=== PATIENT | male | born 1940 | race Caucasian/White ===

== ENCOUNTER → 2016-12-07 | Outpatient (CLI) | payer OTHER, MEDICARE ==
[~2016-12-07] VITALS: Ht 177.8 cm; Wt 82.6 kg
[~2016-12-07] MED LIST: ALEVE220 M1 PO; AMBIEN; AMBIEN 10 MG TA10 MG PO; ASPIR-LOW81 MG PO; BACLOFEN 10MG T10 MG PO; BIOTIN5 MG PO; BISOPROLOL FUMA10 MG PO; CELEBREX 200 M200 MG PO; CINNAMON500 MG PO; COLACE100 MG PO; CRESTOR10 MG PO; DICLOFENAC SOD50 M1 PO; FENTANYL PA25 MCG/HR TP; FISH OIL 1,001000 M2 PO; FISHOIL PO; FLEXERIL PO; FLOMAX0.4 MG PO; GLUCOPHAGE XR500 MG PO; LIORESAL 10 MG10 MG PO; LIPITOR 20 MG T20 M1 PO; LISINOPRIL20 MG PO; LISINOPRIL5 MG PO; LYRICA 50 MG50 MG PO; LYRICA 75 MG CA75 MG PO; LYRICA200 MG PO; MEDROLDOSEPACK PO; MELATONIN10 M1 PO; MULTIVITAMINS; NABUMETONE 500500 M1 PO; NABUMETONE 750750 M1 PO; NAPROSYN500 MG PO; NEURONTIN 300300 M1 PO; NEURONTIN100 MG PO; NEURONTIN600 MG PO; NORVASC 5 MG TAB5 MG PO; OXYCODONE-ACET1 EAC2 PO; PERCOCET 10-321 EACH PO; PERCOCET 5-3251 EACH PO; PHENDIMETRAZINE35 MG PO; PRILOSEC 20 MG20 MG PO; SAW PALMETTO160 M1 PO; VITAMIN D-32000 UNIT PO; WELLBUTRIN SR150 MG PO; WELLBUTRIN XL150 M1 PO; ZIPSOR25 MG PO; ZOCOR 10 MG TAB10 MG PO
--- NOTE | ~2016-12-07 | HPC ---
[facility] [address] [place] [address] PAIN MANAGEMENT CONSULTATION Name: SAMSON ALANIZ Room #: REG [facility]#: [id number] Admission: 12/07/16 Attend Phys: Coleman Parnell DO Discharge: Date of : 42 Report #: [id number] THIS REPORT FOR: //name// CC: Coleman Tubbs MD DATE OF SERVICE: 12/07/2016 REFERRING PHYSICIAN: Osmani Tubbs MD. CHIEF COMPLAINT: Low back pain and left lower extremity pain. HISTORY OF PRESENT ILLNESS: As you know, the patient is a 76-year-old male, returning in followup visit with recurrent lumbar radicular pain, secondary to spinal stenosis. He indicates today level of pain at 3/10. States the pain begins in the low back, radiates down the right leg intermittently on the left leg. He states standing and walking exacerbate symptoms. Medications, sitting, and lying down appears to improve pain. He has returned today in followup visit for epidural injection under fluoroscopic guidance and for refills of his gabapentin. ALLERGIES: NABUMETONE. CURRENT MEDICATIONS: Baclofen, lisinopril, Percocet, gabapentin, metformin, Biotin, tamsulosin, bupropion, Zolpidem, and cholecalciferol. SOCIAL HISTORY: The patient denies tobacco, alcohol, IV or illicit drug use. He is retired, retired years ago, accompanied by his . IMAGING: No new imaging available. PHYSICAL EXAMINATION: VITAL SIGNS: Blood pressure 153/80, pulse is 51, respiratory rate 16, unlabored. The patient is 97% on room air. Height 5 feet 10 inches tall, weight 182 pounds, BMI calculated 26.1. GENERAL: Well-developed, well-nourished, and well-hydrated. A 76-year-old male. He appears stated age, placing current pain score at 3/10. HEENT: Normocephalic and atraumatic. Pupils are equal, round, and reactive to light. Extraocular muscles are intact. EXTREMITIES: Show no clubbing, no cyanosis, no edema. MUSCULOSKELETAL: Seated straight leg raising negative. Supine straight leg raising positive. Tong's test negative. Gait is antalgic, favoring right lower extremity over left. Ankle clonus negative. Babinski is negative. ASSESSMENT: [address] [address] PAIN MANAGEMENT CONSULTATION Name: SAMSON ALANIZ Room #: REG [facility]#: [id number] Admission: 12/07/16 Attend Phys: Coleman Parnell DO Discharge: Date of : 42 Report #: [id number] 1. Symptomatic lumbar radiculopathy. 2. Progressively worsening spinal stenosis of the lumbar spine. 3. Post-laminectomy syndrome. 4. Lumbosacral spondylosis with radiculopathy. 5. Displacement of lumbar intervertebral disk with radiculopathy. 6. Lumbar degeneration. 7. Chronic intractable pain. PLAN: 1. The patient returns today in followup visit requesting to undergo the next in the series of epidural injections under fluoroscopic guidance. He does report that he received epidural injections in [place]. Apparently, he had received one while he was there. This now leaves us with two remaining epidural injections in the 6 months' period. I have advised the patient at this time of the risks and the benefits of the requested epidural injection. These risks include but are not necessarily limited to bleeding, bruising, infection, worsening pain, no relief of pain, also risk of temporary or permanent muscle weakness, temporary or permanent nerve damage, possible paralysis and . The patient states he understood and wished to proceed. 2. The patient was provided a refill of prescription on his gabapentin 600 mg dose 1 tab p.o. at bedtime. I have given the patient #90 tablets. 3 months' worth of medications. 3. The patient will return to our clinic on an as needed basis for possible repeat epidural injection. We did discuss once again today, the progressive process of spinal stenosis. I believe the patient is experiencing increasing pain that is variable in nature, secondary to spinal stenosis and this process will continue. We discussed the options for treatment. He is considering these and will discuss at our followup visit. PROCEDURE NOTE DESCRIPTION OF PROCEDURE: Lumbar epidural steroid injection under fluoroscopic guidance. After obtaining a written consent, the patient was taken back to fluoroscopy suite, placed in prone position with pillow under her abdomen to decrease lumbar lordosis. Skin overlying the lumbosacral area prepped and draped in aseptic fashion. The lumbar intervertebral spaces were identified by AP fluoroscopy. Skin and subcutaneous tissue overlying the target site of injection was anesthetized with 3 mL of 1% lidocaine. A 20-gauge 3-1/2 inch Tuohy needle advanced under fluoroscopic guidance towards the epidural space using a paramedian approach. Epidural space was identified using loss of resistance to air technique. After negative aspiration for heme or cerebrospinal fluid, 1 mL of Omnipaque was injected. A lumbar epidurogram was confirmed using both AP and lateral fluoroscopy. After negative aspiration [address] [address] PAIN MANAGEMENT CONSULTATION Name: SAMSON ALANIZ Room #: REG [facility]#: [id number] Admission: 12/07/16 Attend Phys: Coleman Parnell DO Discharge: Date of : 42 Report #: [id number] for heme or cerebrospinal fluid, 5 mL of a solution containing 2 mL 40 mg per mL, 80 mg total triamcinolone, 3 mL of lidocaine 1% injected slowly. Needle retracted fci, needle tract flushed with 3 mL 1% lidocaine. Needle was then removed. Sterile bandage placed over injection site. No new motor deficits present in the lower extremity following the procedure. The patient tolerated the procedure well, carefully escorted to the recovery room in stable condition. No apparent complications. After meeting discharge criteria, the patient discharged home. By: [id number] Coleman Parnell DO /nt
[2016-12-07 10:26] VITALS: BP 153/80
== END | disposition home or self-care (01) ==
LOC: PAIN 12-01 11:05
DX: M51.16 Intervertebral disc disorders with radiculopathy, lumbar region (principal); M48.06 Spinal stenosis, lumbar region; M47.27 Other spondylosis with radiculopathy, lumbosacral region; G89.29 Other chronic pain; M96.1 Postlaminectomy syndrome, not elsewhere classified; Z87.891 Personal history of nicotine dependence

== ENCOUNTER → 2016-12-15 | Outpatient (CLI) | payer OTHER, MEDICARE | LOC: MRI 02:01 | DX: M48.02 Spinal stenosis, cervical region (principal); R91.1 Solitary pulmonary nodule; M47.22 Other spondylosis with radiculopathy, cervical region; M54.2 Cervicalgia ==

== ENCOUNTER → 2017-04-27 | Outpatient (CLI) | payer OTHER, MEDICARE ==
[~2017-04-27] VITALS: Ht 172.7 cm; Wt 81.6 kg
[~2017-04-27] MED LIST changes: +MOBIC7.5 MG PO
--- NOTE | ~2017-04-27 | HPC ---
[facility] [address] [place] [address] PAIN MANAGEMENT CONSULTATION Name: SAMSON ALANIZ [facility] [id number] Admission: 04/27/17 Attend Phys: Coleman Parnell DO Discharge: Date of : 42 Report #: [id number] THIS REPORT FOR: //name// CC: Coleman Tubbs DATE OF SERVICE: 04/27/2017 CHIEF COMPLAINT: Low back pain, bilateral lower extremity pain with paresthesias. HISTORY OF PRESENT ILLNESS: As you know, the patient is a 77-year-old male who returns today in followup visit with recurrent lumbar radicular pain secondary to progressively worsening spinal stenosis. We have had the patient seen for years for ongoing lumbar radiculopathy. He has recently seen a neurosurgeon who advised a possible surgical necessity. The patient wishes to trial more conservative therapy until which time his conservative therapy fails. He reports good improvement with epidural injections and medication management up to 60% improvement. He has returned today in followup visit requesting next in the series of epidural injections in hopes of building on success of previous intervention. The patient denies any new injury or trauma that may have led to symptoms and no new changes in medical history since our last visit. ALLERGIES: NABUMETONE. CURRENT MEDICATIONS: Baclofen, lisinopril, Percocet, gabapentin, metformin, biotin, tamsulosin, bupropion, zolpidem and cholecalciferol. SOCIAL HISTORY: The patient denies tobacco, alcohol, IV or illicit drug use. He is retired, retired years ago. He is unaccompanied today. IMAGING: No new imaging available. PHYSICAL EXAMINATION: VITAL SIGNS: Blood pressure 186/81, pulse is 51, respiratory rate 14 unlabored. The patient is 98% on room air. Height 5 feet 8 inches tall, weight 180 pounds, BMI calculated 27.4. GENERAL: Well-developed, well-nourished, well-hydrated, 77-year-old male. He appears his stated age. He is placing current pain score at 8/10. HEENT: Normocephalic, atraumatic. Pupils equal, round, reactive to light. EXTREMITIES: Show no clubbing, no cyanosis, no edema. MUSCULOSKELETAL: Seated straight leg raising negative. Supine straight leg raising positive left. ESTELA test negative. Modified Gaenslen's positive for axial low back pain. Ankle clonus negative. Babinski is negative. Muscle bulk and tone equal and symmetrical in lower extremities. [place] [address] PAIN MANAGEMENT CONSULTATION Name: SAMSON ALANIZ Room #: [facility] MelitaOziel#: [id number] Admission: 04/27/17 Attend Phys: Coleman Parnell DO Discharge: Date of : 42 Report #: [id number] left lower extremity over right. ASSESSMENT: 1. Symptomatic lumbar radiculopathy. 2. Progressively worsening spinal stenosis of lumbar spine. 3. Displacement of lumbar intervertebral disk with radiculopathy. 4. Lumbosacral spondylosis with radiculopathy. 5. Lumbar degeneration. 6. Facet arthropathy of lumbar spine. 7. Chronic intractable pain. PLAN: 1. The patient returns today in followup visit indicating good benefit with previous epidural injection. He has returned today in followup visit to undergo the next in the series of epidural injections. The patient states he has recently been seen by Dr. Pulliam, Neurosurgery at [facility]. I advised that he will likely need surgical decompression of his spinal stenosis, but to continue conservative therapy until this fails to provide good benefit. He has been referred back to our clinic to trial this epidural injection. He has been advised risks and benefits of procedure, states he understood and wished to proceed. 2. The patient was provided a prescription of gabapentin 600 mg dose taking 1 tab p.o. at bedtime, given the patient #90 which is a 3-month prescription with four refills. 3. The patient was provided a prescription of baclofen 10 mg dose 1 tab p.o. t.i.d., muscle spasms, #90, 2 refills. 4. The patient was provided a prescription of Percocet 10/325 one tab every 8 hours p.r.n. for pain, #90 releases of today, 4 weeks from today, 8 weeks from today, 3 months' worth of medication. The patient denies any side effects to medication, does find them beneficial. He has not shown any aberrancy with the use of medication. He has not called for early refills or had lost or stolen prescriptions. He appears to be safeguarding his medications well. 5. We will see the patient back in followup visit on an as needed basis for the next in a series of epidural injections, otherwise, we will see him back in 3 months for medication management. PROCEDURE NOTE DESCRIPTION OF PROCEDURE: L5-S1 left paramedian epidural steroid injection under fluoroscopic guidance. After obtaining written consent, the patient was taken back to fluoroscopy suite, placed in prone position with pillow under abdomen to decrease lumbar lordosis. Skin overlying lumbosacral area prepped and draped in aseptic fashion. Lumbar intervertebral spaces were identified by AP fluoroscopy. Skin and subcutaneous tissue overlying target site of injection was anesthetized with [address] [address] PAIN MANAGEMENT CONSULTATION Name: SAMSON ALANIZ Room #: [facility]#: [id number] Admission: 04/27/17 Attend Phys: Coleman Parnell DO Discharge: Date of : 42 Report #: [id number] 3 mL of 1% lidocaine. A 20-gauge 3-1/2 inch Tuohy needle advanced under fluoroscopic guidance towards the epidural space using a left paramedian approach. Epidural space identified using loss of resistance to air technique. After negative aspiration for heme or cerebrospinal fluid, 1 mL of Omnipaque was injected. Lumbar epidurogram was confirmed using both AP and lateral fluoroscopy. After negative aspiration for heme or cerebrospinal fluid, 5 mL of a solution containing 2 mL 40 mg per mL, 80 mg total triamcinolone, 3 mL lidocaine 1% injected slowly. Needle retracted correction, needle tract flushed with 3 mL 1% lidocaine. Needle then removed. Sterile bandage placed over injection site. No new motor deficits present in lower extremity following the procedure. The patient tolerated the procedure well, carefully escorted to the recovery room in stable condition. No apparent complications. After meeting discharge criteria, the patient discharged home. By: [id number] Coleman Parnell DO /nt
[2017-04-27 08:10] VITALS: BP 186/81
== END | disposition home or self-care (01) ==
LOC: PAIN 07:07
DX: M51.16 Intervertebral disc disorders with radiculopathy, lumbar region (principal); G89.29 Other chronic pain; M48.06 Spinal stenosis, lumbar region; M47.27 Other spondylosis with radiculopathy, lumbosacral region; M12.88 Other specific arthropathies, not elsewhere classified, other specified site; Z79.899 Other long term (current) drug therapy; Z88.8 Allergy status to other drugs, medicaments and biological substances; Z98.890 Other specified postprocedural states

== ENCOUNTER → 2017-07-05 | Outpatient (CLI) | payer OTHER, MEDICARE ==
[~2017-07-05] VITALS: Ht 172.7 cm; Wt 81.2 kg
--- NOTE | ~2017-07-05 | HPC ---
[facility] [place] [address] PAIN MANAGEMENT CONSULTATION Name: SAMSON ALANIZ Room #: REG [facility]#: [id number] Admission: 07/05/17 Attend Phys: Coleman Parnell DO Discharge: Date of : 42 Report #: [id number] THIS REPORT FOR: //name// CC: Coleman Tubbs DATE OF SERVICE: 07/05/2017 CHIEF COMPLAINT: Low back pain, left lower extremity pain with paresthesias, intermittent right lower extremity pain. HISTORY OF PRESENT ILLNESS: As you know, the patient is a 77-year-old male who returns today in followup visit with recurrent low back pain, left lower extremity pain and intermittent right lower extremity pain. He places pain score anywhere from 6-8/10; states pain is sharp, aching, dull, numbness and tingling; exacerbated with standing, walking, arising in the morning hours; medications, sitting, repositioning and epidural injections appear to improve pain. He returns today in followup visit requesting an epidural injection under fluoroscopic guidance to assist in pain control. ALLERGIES: Nabumetone. CURRENT MEDICATIONS: Baclofen, lisinopril, Percocet, gabapentin, metformin, biotin, tamsulosin, Bupropion, zolpidem and cholecalciferol. SOCIAL HISTORY: The patient denies tobacco, alcohol, IV or illicit drug use. He is retired, retired years ago. He is accompanied by his . IMAGING: No new imaging available. PHYSICAL EXAMINATION: VITAL SIGNS: Blood pressure 164/89, pulse is 46, respiratory rate 16 and unlabored. The patient is 98% on room air, height 5 feet 8 inches tall, weight 179 pounds, BMI calculated 27.2. GENERAL: Well-developed, well-nourished, well-hydrated 77-year-old male who appears his stated age. He is placing current pain score 6-8/10. HEENT: Normocephalic, atraumatic. Pupils equal, round, reactive to light. Extraocular muscles are intact. Sclerae nonicteric, without injection. EXTREMITIES: Show no clubbing, no cyanosis, no edema. MUSCULOSKELETAL: Seated straight leg raising remains negative. Supine straight leg raising is positive left. ESTELA test negative. Modified Gaenslen's positive for axial low back pain. Gait slightly antalgic favoring left lower extremity over right. Muscle bulk and tone equal and symmetrical in lower extremities. Ankle clonus negative. Babinski is negative. [facility] [address] [place] [address] PAIN MANAGEMENT CONSULTATION Name: SAMSON ALANIZ Room #: [facility]#: [id number] Admission: 07/05/17 Attend Phys: Coleman Parnell DO Discharge: Date of : 42 Report #: [id number] ASSESSMENT: 1. Symptomatic lumbar radiculopathy. 2. Progressively worsening spinal stenosis of lumbar spine. 3. Displacement of lumbar intervertebral disk with radiculopathy. 4. Lumbosacral spondylosis with radiculopathy. 5. Postlaminectomy syndrome. 6. Lumbar degeneration. 7. Chronic intractable pain. PLAN: 1. The patient returns today in followup visit where we have discussed again the patient's specific pathology. The patient, as you are aware, suffers from progressively worsening spinal stenosis, which is leading to mainly left lower extremity pain and paresthesias, but intermittent right lower extremity pain with paresthesias. The patient reports good efficacy with previous epidural injection, up to 60-70% improvement in overall pain. This lasted until a recent fishing trip with his grandson where he began to experience increasing pain. Next day he states his pain returned to its typical baseline of 6-8/10. He has made today's appointment to undergo the next in a series of epidural injections. He has been advised risks and benefits of the procedure, states he understood and wished to proceed. 2. No medication changes were made at today's visit. The patient will continue current medical therapy as previously prescribed. 3. The patient will return to our clinic on an as needed basis for the next in the series of epidural injections to build on success of previous treatments PROCEDURE NOTE DESCRIPTION OF PROCEDURE: Lumbar epidural steroid injection under fluoroscopic guidance. After obtaining written consent, the patient was taken back to fluoroscopy suite, placed in prone position with pillow under abdomen to decrease lumbar lordosis. Skin overlying lumbosacral area prepped and draped in aseptic fashion. The lumbar intervertebral spaces were identified by AP fluoroscopy. Skin and subcutaneous tissue overlying the target site of injection was anesthetized with 3 mL of 1% lidocaine. A 20-gauge 3-1/2 inch Tuohy needle advanced under fluoroscopic guidance towards the epidural space using a left paramedian approach. Epidural space identified using loss of resistance to air technique. After negative aspiration for heme or cerebrospinal fluid, 1 mL of Omnipaque was injected. Lumbar epidurogram was confirmed using both AP and lateral fluoroscopy. After negative aspiration for heme or cerebrospinal fluid, 5 mL of a solution containing 2 mL 40 mg per mL, 80 mg total triamcinolone, 3 mL lidocaine 1% injected slowly. Needle retracted jail, needle tract flushed with 3 mL 1% lidocaine. Needle then removed. [address] [address] PAIN MANAGEMENT CONSULTATION Name: SAMSON ALANIZ Room #: REG [facility]#: [id number] Admission: 07/05/17 Attend Phys: Coleman Parnell DO Discharge: Date of : 42 Report #: [id number] Sterile bandage placed over injection site. No new motor deficits present in lower extremity following the procedure. The patient tolerated the procedure well, carefully escorted to the recovery in stable condition. No apparent complications. After meeting discharge criteria, the patient discharged home. By: [id number] Coleman Parnell DO /nt
[2017-07-05 12:54] VITALS: BP 164/89
== END | disposition home or self-care (01) ==
LOC: PAIN 06:57
DX: M51.16 Intervertebral disc disorders with radiculopathy, lumbar region (principal); M48.061 Spinal stenosis, lumbar region without neurogenic claudication; M47.27 Other spondylosis with radiculopathy, lumbosacral region; M96.1 Postlaminectomy syndrome, not elsewhere classified; G89.29 Other chronic pain; Z88.5 Allergy status to narcotic agent; Z79.899 Other long term (current) drug therapy; Z87.891 Personal history of nicotine dependence

== ENCOUNTER → 2017-11-29 | Outpatient (CLI) | payer OTHER, MEDICARE ==
[~2017-11-29] VITALS: Ht 172.7 cm; Wt 85.3 kg
[~2017-11-29] MED LIST changes: +MS CONTIN15 MG PO; +SUPER B-50 COM1 EACH PO; +VITAMINC500 PO
--- NOTE | ~2017-11-29 | HPC ---
[facility] [address] [place] [address] PAIN MANAGEMENT CONSULTATION Name: SAMSON ALANIZ [facility] [id number] Admission: 11/29/17 Attend Phys: Coleman Parnell DO Discharge: Date of : 42 Report #: [id number] THIS REPORT FOR: //name// CC: Coleman Tubbs MD DATE OF SERVICE: 11/29/2017 REFERRING PHYSICIAN: Osmani Tubbs M.D. CHIEF COMPLAINT: Low back pain, bilateral lower extremity pain with paresthesias, right greater than left. HISTORY OF PRESENT ILLNESS: As you know, the patient is a 77-year-old male who suffers from continual lumbar radiculopathy secondary to spinal stenosis. He has had symptoms that involved both lower extremities bilaterally but now is experiencing greater symptoms on the right side. He returns today in followup visit to undergo next in the series of epidural injections under fluoroscopic guidance. He reported a 95% improvement in overall pain with previous epidural injection lasting for months. He has had a return of symptoms without inciting injury or trauma. States his pain is sharp, aching, dull, numbness and tingling when describing pain. He is also experiencing pain and paresthesias in the right upper extremity, which appears to be cervical radiculopathy. He was discussed this as well. ALLERGIES: NABUMETONE. CURRENT MEDICATIONS: Baclofen, lisinopril, Percocet, gabapentin, metformin, biotin, bupropion, zolpidem and cholecalciferol. SOCIAL HISTORY: The patient denies tobacco, alcohol, IV or illicit drug use. He is retired, retired years ago and unaccompanied today. IMAGING DATA: No new imaging available. PQRS: The patient has known osteoarthritis. No rheumatoid arthritis. He is not a risk for fall and has not had a fall in the last 3 months. His pain intensity is 6/10. He does have a history of hypertension, which is treated. He is on opioids for greater than 6 months and he is under contract with [facility] to receive these medications. His functional assessment is indicated at 47/70 indicating [id number] interference of daily activities secondary to pain. PHYSICAL EXAMINATION: VITAL SIGNS: Blood pressure 135/88, pulse 69 and respiratory rate 14 and [facility] [address] [place] [address] PAIN MANAGEMENT CONSULTATION Name: SAMSON ALANIZ Room #: [facility]#: [id number] Admission: 11/29/17 Attend Phys: Coleman Parnell DO Discharge: Date of : 42 Report #: [id number] unlabored. The patient is 98% on room air. Height 5 feet 8 inches tall, weight 180 pounds and BMI calculated 28.6. GENERAL: Well-developed, well-nourished, well-hydrated 77-year-old male appearing stated age, placing current pain score 6/10. HEENT: Normocephalic and atraumatic. Pupils equal, round and reactive to light. Extraocular muscles are intact. EXTREMITIES: Show no clubbing, no cyanosis and no edema. MUSCULOSKELETAL: Upper extremity strength equal and symmetrical 5/5. He is intact to light touch from C5 to T1 dermatomes. Spurling's test positive on the right, negative left. Distribution of symptoms appears to be C7 dermatome on the right. Seated straight leg raising negative. Supine straight leg raising positive, right. Tong's test negative. Modified Gaenslen's positive for axial low back pain. Ankle clonus negative. Gait is antalgic favoring right lower extremity over left. ASSESSMENT: 1. Symptomatic lumbar radiculopathy. 2. Progressively worsening spinal stenosis of lumbar spine. 3. Displacement of lumbar intervertebral disk with radiculopathy. 4. Lumbosacral spondylosis with radiculopathy. 5. Lumbar degeneration. 6. Cervical radiculopathy. 7. Cervical spondylosis with radiculopathy. 8. Chronic intractable pain. PLAN: 1. The patient returns today in followup visit where he is describing continued lumbar radicular symptoms secondary to spinal stenosis. His symptoms are now involved bilateral lower extremities, right greater than left. He returns today in followup visit requesting epidural injection under fluoroscopic guidance. He has been advised the risks and benefits of procedures. He states understood and wished to proceed. The patient was very pleased with previous epidural injection receiving 95% improvement in overall pain for months. He returns to undergo the procedure today. 2. The patient is experiencing what appears to be cervical radiculopathy on the C7 dermatome on the right. Provocation testing indicates worsening symptoms with lateral flexion and rotation to the right versus left. Symptoms do correlate with cervical radiculopathy. We discussed options for treatments and the patient wishes to make alterations in his medications initially. 3. We will increase the patient's gabapentin from 600 mg at night to 900 mg at night for 7 days, then increase to 1200 mg at night for 7 days, then increase to 1 tab in the morning continuing 4 times a night for the next 21 days, reaching a level of 1200 mg twice a day. The patient was advised anytime during the titration of medication notes side effects of somnolence, decreased mental acuity, disorientation and confusion, decrease the dose to prior and contact our clinic for further instructions. He was given the titration schedule in written [facility] [address] [place] [address] PAIN MANAGEMENT CONSULTATION Name: SAMSON ALANIZ [facility] #: [facility] [id number] Admission: 11/29/17 Attend Phys: Coleman Parnell DO Discharge: Date of : 42 Report #: [id number] form today. He was also given a prescription of gabapentin 300 mg dose #240. 4. The patient was provided a prescription of baclofen 10 mg dose 1 tab p.o. b.i.d. to t.i.d., #90, two refills. 5. The patient was provided refill prescription of Percocet 10/325 one tab t.i.d. p.r.n., #90, releases of today, 4 weeks from today and 8 weeks from today. 6. The patient return for clinic in 3 months for medication therapy earlier for the next in the series of epidural injections. PROCEDURE NOTE DESCRIPTION OF PROCEDURE: Lumbar epidural steroid injection under fluoroscopic guidance. After obtaining written consent, the patient was taken back to fluoroscopy suite, placed in prone position with pillow under abdomen to decrease lumbar lordosis. Skin overlying lumbosacral area then prepped and draped in aseptic fashion. Lumbar intervertebral spaces identified by AP fluoroscopy. Skin and subcutaneous tissue overlying target site of injection was anesthetized with 3 mL of 1% lidocaine. A 20-gauge 3-1/2 inch Tuohy needle advanced under fluoroscopic guidance towards the epidural space using a right paramedian approach. Epidural space identified using loss of resistance to air technique. After negative aspiration for heme or cerebrospinal fluid, 1 mL of Omnipaque was injected. Lumbar epidurogram was confirmed using both AP and lateral fluoroscopy. After negative aspiration for heme or cerebrospinal fluid, 3 mL of a solution containing 2 mL 40 mg per mL, 80 mg total triamcinolone, 1 mL of lidocaine 1% was injected slowly. Needle retracted residential, flushed with 1 mL of 1% lidocaine and removed. Sterile bandage placed over injection site. No new motor deficits present in lower extremity following procedure. The patient tolerated procedure well, carefully escorted to recovery room in stable condition. No apparent complication. After meeting discharge criteria, the patient discharged home. <ELECTRONICALLY SIGNED> By: Coleman Parnell DO 11/29/17 [id number] Coleman Parnell DO /nt
[2017-11-29 09:14] VITALS: BP 135/88
== END | disposition home or self-care (01) ==
LOC: PAIN 07:00
DX: M51.16 Intervertebral disc disorders with radiculopathy, lumbar region (principal); M47.22 Other spondylosis with radiculopathy, cervical region; M47.27 Other spondylosis with radiculopathy, lumbosacral region; G89.29 Other chronic pain; M48.061 Spinal stenosis, lumbar region without neurogenic claudication; Z79.899 Other long term (current) drug therapy

== ENCOUNTER → 2018-03-07 | Outpatient (CLI) | payer OTHER, MEDICARE ==
[~2018-03-07] VITALS: Ht 172.7 cm; Wt 82.5 kg
--- NOTE | ~2018-03-07 | HPC ---
[facility] [place] [address] PAIN MANAGEMENT CONSULTATION Name: SAMSON ALANIZ [facility] [id number] Admission: 03/07/18 Attend Phys: Coleman Parnell DO Discharge: Date of : 42 Report #: [id number] THIS REPORT FOR: //name// CC: Coleman Tubbs MD DATE OF SERVICE: 03/07/2018 REFERRING PHYSICIAN: Dr. Osmani Tubbs. CHIEF COMPLAINT: Neck pain, bilateral upper extremity pain and paresthesias, chronic low back pain. HISTORY OF PRESENT ILLNESS: As you know, the patient is a 78-year-old male who returns today in followup visit with concern of neck pain, bilateral upper extremity pain and paresthesias. The patient, as you are aware, has been diagnosed with cervical radiculopathy, but has been doing very well from his cervical radicular standpoint. Unfortunately, his symptoms have returned interestingly just about the time his low back pain began to improve. He returns today in followup visit requesting a cervical epidural injection under fluoroscopic guidance to determine if his symptoms would be amenable to such procedures. He denies injury or trauma to his neck or upper extremities that may have led to symptoms. He has had no changes in medical history since our last visit except for improvement in his low back symptoms. ALLERGIES: NABUMETONE. CURRENT MEDICATIONS: Baclofen, lisinopril, Percocet, gabapentin, metformin, biotin, bupropion, zolpidem, cholecalciferol. SOCIAL HISTORY: The patient denies tobacco, alcohol, IV or illicit drug use. He is retired, retired years ago. He is unaccompanied today. IMAGING: There is no new imaging available. PQRS: The patient has known cervical osteoarthritis, lumbar osteoarthritis, bilateral knee osteoarthritis. He does not suffer from rheumatoid arthritis. He is not a fall risk, has not had a fall in the last 3 months. The pain score today is rated at 8/10. He does have a history of hypertension, but is not on any blood thinners. He does require opioid medications, but he is a low risk for opioid abuse. He indicates a pain impact score today of 57/70, severe interference. PHYSICAL EXAMINATION: VITAL SIGNS: Blood pressure 147/89, pulse 70, respiratory rate 16 and [facility] [address] [place] [address] PAIN MANAGEMENT CONSULTATION Name: SAMSON ALANIZ Room #: REG [facility].#: [id number] Admission: 03/07/18 Attend Phys: Coleman Parnell DO Discharge: Date of : 42 Report #: [id number] unlabored, the patient is 97% on room air. GENERAL: Well-developed, well-nourished, well-hydrated 78-year-old male. He appears stated age, placing current pain score today 8/10. HEENT: He is normocephalic, atraumatic. Pupils equal, round, reactive to light. Extraocular muscles are intact. Speech is fluent. EXTREMITIES: Show no clubbing, no cyanosis, no edema. MUSCULOSKELETAL: Upper extremity strength appears equal and symmetrical, 5/5. He is intact to light touch from C5-T1 dermatomes. Deep tendon reflexes are symmetrical at biceps, brachialis and triceps 1+/4. Spurling's test is equivocal. Cervical provocation testing including extension, rotation, lateral flexion all intensify cervical axial pain, no radiation of symptoms with these maneuvers. ASSESSMENT: 1. Cervical radiculopathy. 2. Cervical spondylosis with radicular symptoms. 3. Displacement of a cervical intervertebral disk with radicular symptoms. 4. Chronic intractable pain. PLAN: 1. The patient returns today in followup visit with near complete resolution of his low back pain and lower extremity symptoms. He states he is walking up to 3 miles a day and believes this in conjunction with medications and recent epidural injection that has provided improvement in his symptoms. At present, the patient is discussing pain involving the neck, upper extremities with radiation all the way down the hands with numbness and tingling, typical of his cervical radiculopathy. He returns requesting a cervical epidural injection under fluoroscopic guidance to address ongoing pain. He also requests a refill of the gabapentin at the elevated doses that we initiated at last visit. The patient was provided a prescription of gabapentin to reach his elevated level of medication. He was given a prescription of gabapentin 300 mg dose 1 tab p.o. t.i.d. This is to be added to his 600 mg tablets he is currently taking to make a total of 900 mg 3 times a day. He was given this prescription with 2 refills. The patient has been advised of the risks and benefits of a cervical epidural injection. These risks include but are not necessarily limited to bleeding, bruising, infection, worsening pain, no relief of pain, also risk of temporary or permanent muscle weakness, temporary or permanent nerve damage, possible paralysis and . The patient states he understood and wished to proceed. 2. No further changes in medication management were made at today's visit. He is to continue current medical therapy as previously prescribed. 3. We will see the patient back in followup visit on an as-needed basis. PROCEDURE NOTE DESCRIPTION OF PROCEDURE: Cervical epidural steroid injection under fluoroscopic guidance. [address] [address] PAIN MANAGEMENT CONSULTATION Name: SAMSON ALANIZ Room #: REG [facility]#: [id number] Admission: 03/07/18 Attend Phys: Coleman Parnell DO Discharge: Date of : 42 Report #: [id number] After obtaining written consent, the patient was taken back to fluoroscopy suite, placed in a prone position with separate pillows under chest and forehead to decrease cervical lordosis. Skin overlying cervical area then prepped and draped in aseptic fashion. C7-T1 cervical interspace was identified by AP fluoroscopy. Skin and subcutaneous tissue overlying target site of injection was anesthetized with 3 mL of 1% lidocaine. A 20-gauge 3-1/2 inch Tuohy needle advanced under fluoroscopic guidance towards the epidural space using a midline approach. Epidural space identified using loss of resistance to air technique. After negative aspiration for heme or cerebrospinal fluid, 1 mL of Isovue was injected. A cervical epidurogram was confirmed using both AP and lateral fluoroscopy. After negative aspiration for heme or cerebrospinal fluid, 5 mL of solution containing 2 mL 40 mg per mL, 80 mg total triamcinolone, 3 mL lidocaine 1% injected slowly. Needle retracted skilled nursing, flushed with 1 mL and 1% lidocaine and removed. Sterile bandage placed over injection site. No new motor deficits present in lower extremity following procedure. The patient tolerated procedure well, carefully escorted to the recovery room in stable condition. No apparent complications. After meeting discharge criteria, the patient will be discharged home. <ELECTRONICALLY SIGNED> By: Coleman Parnell DO 03/08/18 0709 [id number] Coleman Parnell DO /nt
[2018-03-07 09:58] VITALS: BP 147/89
== END | disposition home or self-care (01) ==
LOC: PAIN 07:33
DX: M47.22 Other spondylosis with radiculopathy, cervical region (principal); M50.10 Cervical disc disorder with radiculopathy, unspecified cervical region; G89.29 Other chronic pain; M19.90 Unspecified osteoarthritis, unspecified site; I10 Essential (primary) hypertension; Z79.891 Long term (current) use of opiate analgesic; Z88.8 Allergy status to other drugs, medicaments and biological substances; Z87.891 Personal history of nicotine dependence; Z79.899 Other long term (current) drug therapy

== ENCOUNTER → 2018-04-11 | Outpatient (CLI) | payer OTHER, MEDICARE ==
[~2018-04-11] VITALS: Ht 172.7 cm; Wt 79.4 kg
--- NOTE | ~2018-04-11 | HPC ---
[facility] [place] [address] PAIN MANAGEMENT CONSULTATION Name: SAMSON ALANIZ Room #: [facility] [id number] Admission: 04/11/18 Attend Phys: Coleman Parnell DO Discharge: Date of : 42 Report #: [id number] THIS REPORT FOR: //name// CC: Coleman Tubbs MD DATE OF SERVICE: 04/11/2018 REFERRING PHYSICIAN: Osmani Tubbs MD CHIEF COMPLAINT: Left shoulder pain, chronic neck pain, and chronic low back pain. HISTORY OF PRESENT ILLNESS: As you know, the patient is a 78-year-old male who returns today in followup visit with ongoing left shoulder pain, requesting a left intra-articular shoulder injection. The patient, as you are aware, is treated typically for lumbar radicular symptoms secondary to spinal stenosis. He returns also requesting assistance to come off the gabapentin as he is not confident this medication is providing much in the way of improvement in symptoms. He returns to have adjustments made in medication therapy and to undergo a left intra-articular shoulder injection. ALLERGIES: NABUMETONE. CURRENT MEDICATIONS: Baclofen, lisinopril, Percocet, gabapentin, metformin, biotin, bupropion, zolpidem, and cholecalciferol. SOCIAL HISTORY: The patient denies tobacco, alcohol, IV or illicit drug use. He is retired, retired years ago. He is accompanied by his who is present in room today. IMAGING: No new imaging available. PQRS: The patient has known cervical osteoarthritis, bilateral shoulder arthritis, lumbar spine osteoarthritis, bilateral knee osteoarthritis. He does not suffer from rheumatoid arthritis. He is not a fall risk, has not had a fall in the last [address] his current pain intensity at 8/10. He is at low risk for opioid abuse. His pain impact score is rated at 57/70, severe. PHYSICAL EXAMINATION: VITAL SIGNS: Blood pressure 142/88, pulse is 75, respiratory rate 14 and unlabored, the patient is 98% on room air, height 5 feet 8 inches tall, weight 175 pounds, and BMI calculated 26.6. GENERAL: Well-developed, well-nourished, well-hydrated 78-year-old male, appearing stated age, placing current pain score at 8/10. [address] [address] PAIN MANAGEMENT CONSULTATION Name: SAMSON ALANIZ Room #: REG [facility]#: [id number] Admission: 04/11/18 Attend Phys: Coleman Parnell DO Discharge: Date of : 42 Report #: [id number] HEENT: Normocephalic, atraumatic. Pupils are equal, round, and reactive to light. Extraocular muscles are intact. EXTREMITIES: Show no clubbing, no cyanosis, and no edema. MUSCULOSKELETAL: Active and passive range of motion of left shoulder is met with increasing pain. Apprehension test is positive. There is palpatory tenderness over the shoulder joint itself. There are no changes in skin color or texture overlying the left shoulder. ASSESSMENT: 1. Left shoulder pain. 2. Left shoulder osteoarthritis. 3. Chronic cervical radiculopathy. 4. Chronic lumbar radiculopathy. 5. Stenosis of the cervical and lumbar spine. 6. Chronic intractable pain. PLAN: 1. The patient returns today in followup visit requesting to undergo a left intra-articular shoulder injection. He has had injections in the past, which have been quite beneficial. He has requested the injection be provided today. I have advised the patient of the risks and benefits. These risks include, but are not necessarily limited to bleeding, bruising, infection, worsening of pain, no relief of pain, also risk of temporary or permanent muscle weakness, temporary or permanent nerve damage, possible joint destruction and . The patient states understood and wished to proceed. 2. The patient and I did discuss the possibility of weaning off of gabapentin, he is not confident this medication is providing much in the way of improvement. I have suggested that he reduce his dose to one 300 mg tablet in the morning and 900 mg at night to continue for 3 nights, then reduce to 1 tablet of 300 mg dose in the morning and 600 mg at night for 3 nights, then only 600 mg at night for 3 nights, then reduce to 300 mg at night for 3 nights, then off the gabapentin entirely. The patient was advised anytime during the reduction in medication he notes intensification of pain, he is to return to the dose that was providing good efficacy prior to his pain reoccurrence. If he notes no loss of pain control with weaning off the medication, he can come off the medication entirely. The patient will contact our clinic to advise us of the level of medication he may be able to reduce to or whether he is able to come off the medication entirely. If question of concerns are noted, he can contact our clinic for assistance on this titration. 3. We will see the patient back in followup visit on an as needed basis for medication management and interventional treatments. PROCEDURE NOTE DESCRIPTION OF PROCEDURE: Left intra-articular shoulder injection under fluoroscopic guidance. [address] [address] PAIN MANAGEMENT CONSULTATION Name: SAMSON ALANIZ Room #: REG [facility]#: [id number] Admission: 04/11/18 Attend Phys: Coleman Parnell, Discharge: Date of : 42 Report #: [id number] After obtaining written consent, the patient was then taken back to fluoroscopy suite. He was placed in supine position. The fluoroscopic imaging device was then placed over the left shoulder and imaging was obtained. The area overlying the left shoulder was then prepped and draped in aseptic fashion. A sterile marker was then placed over the shoulder and marked with a sterile marker. The area was then anesthetized with 2 mL of 1% lidocaine using a 25-gauge 1-1/4-inch needle. A 25-gauge 2-inch needle was then advanced into the left shoulder under fluoroscopic guidance. Needle was advanced to reaching the proximal head of the humerus. Needle was retracted approximately 1 mm and aspiration noted to be negative for heme. After this aspiration noted to be negative for heme, 0.4 mL of Omnipaque was injected demonstrating an excellent left shoulder arthrogram. After negative aspiration for heme, 3 mL of a solution containing 1 mL 40 mg per mL, 40 mg total triamcinolone and 2 mL bupivacaine 0.5% injected slowly. Needle retracted half-way, flushed with 1 mL of 1% lidocaine and removed. Sterile bandage placed over injection site. No new motor deficits present in the upper extremity following procedure. The patient tolerated the procedure well, carefully escorted to recovery room in stable condition. No apparent complications. After meeting discharge criteria, the patient discharged home. By: [id number] Coleman Parnell DO /omid
[2018-04-11 10:51] VITALS: BP 142/88
== END | disposition home or self-care (01) ==
LOC: PAIN 06:35
DX: M19.012 Primary osteoarthritis, left shoulder (principal); M19.011 Primary osteoarthritis, right shoulder; G89.29 Other chronic pain; M54.12 Radiculopathy, cervical region; M54.16 Radiculopathy, lumbar region; M48.061 Spinal stenosis, lumbar region without neurogenic claudication; M48.02 Spinal stenosis, cervical region; M46.96 Unspecified inflammatory spondylopathy, lumbar region; M17.0 Bilateral primary osteoarthritis of knee; Z79.899 Other long term (current) drug therapy; Z88.8 Allergy status to other drugs, medicaments and biological substances; Z87.891 Personal history of nicotine dependence

== ENCOUNTER → 2018-06-07 | Outpatient (CLI) | payer OTHER, MEDICARE ==
[~2018-06-07] VITALS: Ht 177.8 cm; Wt 80.0 kg
--- NOTE | ~2018-06-07 | HPC ---
[address] [address] PAIN MANAGEMENT CONSULTATION Name: SAMSON ALANIZ Room #: REG [facility]#: [id number] Admission: 06/07/18 Attend Phys: Coleman Parnell DO Discharge: Date of : 44 Report #: [id number] THIS REPORT FOR: //name// CC: Coleman Tubbs MD DATE OF SERVICE: 06/07/2018 REFERRING PHYSICIAN: Osmani Tubbs MD CHIEF COMPLAINT: Low back pain, lower extremity pain with paresthesias. HISTORY OF PRESENT ILLNESS: As you know, the patient is a 78-year-old male, returning in followup visit with continued low back pain, bilateral lower extremity pain with paresthesias, left greater than right. He has done very well with previous epidural injections, returning today in followup visit to undergo next in the series of epidural injections. The patient denies any new injury, new trauma or any changes in medical history since our last visit. He returns to undergo epidural injection under fluoroscopic guidance to determine if he can continue to see benefit with these procedures. ALLERGIES: NABUMETONE. CURRENT MEDICATIONS: Baclofen, lisinopril, Percocet, metformin, biotin, bupropion, zolpidem, cholecalciferol. SOCIAL HISTORY: The patient denies tobacco, alcohol, IV or illicit drug use. He is retired, retired years ago, accompanied by his , present in room today. IMAGING: No new imaging available. PQRS: The patient has osteoarthritis of the cervical spine, bilateral shoulders, lumbar spine and bilateral knees. He has no diagnosis of rheumatoid arthritis. He is not a fall risk, has not had a fall in the last 3 months. He places current pain score at 8/10. He is a low risk for opioid addiction. He has been on opioids for greater than 6 months. He is placing his functional pain impact score at 57/70, severe interference. PHYSICAL EXAMINATION: VITAL SIGNS: Blood pressure 147/89, pulse is 72, respiratory rate 14 and unlabored. The patient is 98% on room air. Height 5 feet 10 inches tall, weight 176.4 pounds, BMI calculated 25.3. GENERAL: Well-developed, well-nourished, well-hydrated 78-year-old male. He appears his stated age, placing current pain score at 8/10. [place] [address] PAIN MANAGEMENT CONSULTATION Name: SAMSON ALANIZ [id number] Admission: 06/07/18 Attend Phys: Coleman Parnell DO Discharge: Date of : 44 Report #: [id number] HEENT: Normocephalic, atraumatic. Pupils equal, round, reactive to light. EXTREMITIES: Show no clubbing, no cyanosis, no edema. MUSCULOSKELETAL: Lower extremity strength equal and symmetrical 5/5. He is intact to light touch from L1 through S2 dermatomes. Seated straight leg raising negative. Supine straight leg raising positive. Tong's test negative. Modified Gaenslen's positive for axial low back pain. Gait appears antalgic favoring left lower extremity over right. ASSESSMENT: 1. Lumbar radiculopathy. 2. Progressively worsening spinal stenosis of lumbar spine. 3. Displacement of lumbar intervertebral disk with radiculopathy. 4. Lumbosacral spondylosis with radiculopathy. 5. Lumbar degeneration. 6. Chronic intractable pain. PLAN: 1. The patient returns today in followup visit requesting to undergo epidural injection under fluoroscopic guidance. The patient had noted excellent benefit with previous epidural injections. He returns today requesting next in the series. He has been advised the risks and benefits of the procedure, states he understood and wished to proceed. 2. No medication changes made at today's visit. The patient to continue current medical therapy as previously prescribed. 3. The patient to return to our clinic on an as needed basis for the next in the series of epidural injections. Otherwise, we will see him back for medication refills as needed. PROCEDURE NOTE DESCRIPTION OF PROCEDURE: Lumbar epidural steroid injection under fluoroscopic guidance. After obtaining written consent, the patient was taken back to fluoroscopy suite, placed in prone position with pillow under abdomen to decrease lumbar lordosis. Skin overlying lumbosacral area then prepped and draped in aseptic fashion. Lumbar intervertebral spaces were identified by AP fluoroscopy. Skin and subcutaneous tissue overlying target site of injection was anesthetized with 3 mL of 1% lidocaine. A 20-gauge 3-1/2 inch Tuohy needle advanced under fluoroscopic guidance towards the epidural space using a paramedian approach. Epidural space identified using loss of resistance to air technique. After negative aspiration for heme or cerebrospinal fluid, 1 mL of Omnipaque injected. Lumbar epidurogram confirmed using both AP and lateral fluoroscopy. After negative aspiration for heme or cerebrospinal fluid, 5 mL of a solution containing 2 mL 40 mg per mL, [address] [address] PAIN MANAGEMENT CONSULTATION Name: SAMSON ALANIZ Room #: REG [facility]#: [id number] Admission: 06/07/18 Attend Phys: Coleman Parnell DO Discharge: Date of : 44 Report #: [id number] total triamcinolone, 3 mL of lidocaine 1% injected slowly. Needle retracted nursing home, flushed with 1 mL of 1% lidocaine and removed. Sterile bandage placed over injection site. No new motor deficits present in the lower extremity following procedure. The patient tolerated the procedure well, carefully escorted to recovery room in stable condition. No apparent complications. After meeting discharge criteria, the patient discharged home. <ELECTRONICALLY SIGNED> By: Coleman Parnell DO 06/13/18 1259 [id number] Coleman Parnell DO /nt
[2018-06-07 09:08] VITALS: BP 147/89
== END | disposition home or self-care (01) ==
LOC: PAIN 06-06 09:49
DX: M51.16 Intervertebral disc disorders with radiculopathy, lumbar region (principal); M48.061 Spinal stenosis, lumbar region without neurogenic claudication; M47.27 Other spondylosis with radiculopathy, lumbosacral region; G89.29 Other chronic pain; Z88.8 Allergy status to other drugs, medicaments and biological substances; Z79.899 Other long term (current) drug therapy; Z87.891 Personal history of nicotine dependence

== ENCOUNTER → 2018-12-19 | Outpatient (CLI) | payer OTHER, MEDICARE ==
[~2018-12-19] VITALS: Ht 177.8 cm; Wt 82.1 kg
[~2018-12-19] MED LIST changes: +ELIQUIS5 MG PO
[2018-12-19 08:47] VITALS: BP 110/84
--- NOTE | 2018-12-19 08:52 | NUR ---
Pain Clinic Assessment: 1. History of Osteoarthritis: Not Applicable History of Rheumatoid Arthritis: Not Applicable 2. Height: 5 ft. 10 in. 177.8 cm. Weight: 181.0 lb. oz. 82.101 kg. Patient's BMI: 26.0 3. Vital Signs: BP: 110/84 Pulse: 78 Resp: 16 Temp: 02 Sat: 99 ECG Mon: 4. Pain Intensity: 6 5. Fall Risk: Dizziness: N Needs help standing or walking: N Fallen in the last 3 months: N Fall risk comments: 6. Patient on Blood Thinner: None 7. History of Hypertension: Y 8. Opioid Therapy greater than 6 weeks: Y Opiate Contract Signed: 07/13/16 9. Risk Assessment Tool Provided: LOW RISK 0/3 10. Functional Assessment Tool: 57/70 11. Recreational Drug Use: Never Drug Type: Tobacco Use: Former Smoker Tobacco Type: Amount or Packs/day: How Many Years: Alcohol Use: Yes Frequency: Quant:
--- NOTE | 2018-12-20 08:13 | HPC ---
[facility] [address] [place] [address] PAIN MANAGEMENT CONSULTATION Name: SAMSON ALANIZ [facility] [id number] Admission: 12/19/18 ������������������ Attend Phys: Coleman Parnell DO Discharge: ������������������ Date of : 44 Report #: [id number] THIS REPORT FOR: //name// CC: Coleman Tubbs MD DATE OF SERVICE: 12/19/2018 REFERRING PHYSICIAN: Osmani Tubbs M.D. CHIEF COMPLAINT: Low back pain, lower extremity pain with paresthesias. HISTORY OF PRESENT ILLNESS: As you know, the patient is a very pleasant 78-year-old male who returns today in followup visit for continuation of medication therapy, is also requesting a lumbar epidural injection under fluoroscopic guidance to address lumbar radicular symptoms involving low back and lower extremities. The patient has done very well with previous epidural injections reporting up to 90% improvement in overall pain. He returns today requesting epidural injection and medication management. He denies new injury or trauma or any changes in medical history since our last visit. ALLERGIES: NABUMETONE. CURRENT MEDICATIONS: Baclofen, lisinopril, Percocet, metformin, biotin, bupropion, zolpidem and cholecalciferol. SOCIAL HISTORY: The patient denies tobacco, alcohol or IV or illicit drug use. He is retired, retired years ago. He is accompanied by his who is present in room today. IMAGING DATA: No new imaging available. PQRS: The patient has known arthritic changes of the cervical spine, bilateral shoulders, lumbar spine and bilateral knees. He does not suffer from rheumatoid arthritis. He places his pain intensity 6/10, is not a fall risk, does not have fallen in the last treatment. He is not on blood thinners. He is treated for hypertension. He has been on chronic opioids for an extended period of time. He is a low risk for opioid addiction, placing pain impact score 57/70, severe interference of daily activities secondary to pain. PHYSICAL EXAMINATION: VITAL SIGNS: Blood pressure 110/84, pulse 78 and respiratory rate 16 and unlabored, the patient 99% on room air. Height 5 feet 10 inches tall, weight 181 pounds, BMI calculated 26.0. GENERAL: Well-developed, well-nourished, well-hydrated 78-year-old male [address] [address] PAIN MANAGEMENT CONSULTATION Name: SAMSON ALANIZ Room #: REG [facility]#: [id number] Admission: 12/19/18 ������������������ Attend Phys: Coleman Parnell DO Discharge: ������������������ Date of : 44 Report #: [id number] appearing stated age, placing current pain score at 6/10. HEENT: Normocephalic and atraumatic. Pupils equal, round and reactive to light. EXTREMITIES: Show no clubbing, no cyanosis and no edema. MUSCULOSKELETAL: Strength in the lower extremities, equal and symmetrical 5/5. Seated straight leg raising negative. Supine straight leg raising positive. Tong's test negative. Gait is antalgic favoring left lower extremity over right. There is palpatory tenderness over the paraspinal musculature of lower lumbar spine and no spinous process tenderness. ASSESSMENT: 1. Symptomatic lumbar radiculopathy. 2. Progressively worsening spinal stenosis of lumbar spine. 3. Displacement of lumbar intervertebral disk with radiculopathy. 4. Lumbosacral spondylosis with radiculopathy. 5. Lumbar degeneration. 6. Chronic intractable pain. PLAN: 1. The patient returns today in followup visit requesting to undergo lumbar epidural injection under fluoroscopic guidance. He has noted excellent benefit with previous injections. He is hopeful to see similar improvement today. He has been advised the risks and benefits of the procedure, states understood and wished to proceed. 2. The patient was provided refill prescription of his Percocet 10/325 mg dose 1 tab p.o. t.i.d. I have given the patient #90 tablets, releasing today, 4 weeks from today, 8 weeks from today, 3 months' worth of medication. The patient was advised he is taking 45 morphine equivalents a day, well below the CDC's recommended no greater than 90 morphine equivalents for chronic pain. The patient does indicate he received a prescription while in [place] from his orthopedic shoulder surgeon for some oxycodone. We have noted he had this prescription and this would be appropriate. 4. We reviewed the fact that opiate medications are being used to provide analgesia adequate to support activities of daily living, not attempting to achieve a specific pain score on the 0-10 Visual Analog Scale. The current opiate medications are providing sufficient analgesia to allow the patient to participate in activities of daily living. The patient is not exhibiting any aberrant behavior suggestive of drug diversion. The patient is not having any adverse reactions to medications. The patient is not suffering from daytime somnolence or mental acuity changes. The patient is managing opiate-induced constipation with appropriate [id number] agents and dietary considerations. The patient was counseled on concern for caution with operating a motor vehicle while using opiate medications. A physical exam was performed and the patient's functional status was evaluated. All patients with back pain were advised against the bed rest greater than 4 [facility] [address] [place] [address] PAIN MANAGEMENT CONSULTATION Name: SAMSON ALANIZ Room #: REG [facility]#: [id number] Admission: 12/19/18 ������������������ Attend Phys: Coleman Parnell DO Discharge: ������������������ Date of : 44 Report #: [id number] days and were advised to return to normal activities. Pain score assessment was noted and the treatment plan was reviewed with the patient. All current medications, both prescribed and OTC were reviewed and reconciled on the electronic medical record. Tobacco screening was accomplished and smoking cessation was advised when indicated. BMI was noted and diet/exercise modification was recommended for all patients following outside normal parameters. I reviewed with the patient today their responsibilities to safeguard prescription medications, reviewed their responsibility to utilize medications only as prescribed by the physician. They are to seek and receive pain medications only from 1 physician group ( [facility]). They are to use 1 pharmacy and keep the clinic informed if they change pharmacies. Their responsibilities include making followup visits in a timely fashion and to avoid abrupt discontinuation of medication usage. Their responsibilities further include bringing their medications (bottles from the pharmacy with residual pills) to the visit for possible confirmation of pill counts and the patient understands it is their responsibility to submit to random drug screens to ensure both that the medications prescribed are present, and that no other controlled substances are present. All prescriptions provided today were generated electronically. 5. The patient will return to our clinic in 3 months for medication therapy or earlier if he wishes to undergo next in the series of lumbar epidural injections. PROCEDURE NOTE DESCRIPTION OF PROCEDURE: L5-S1 paramedian epidural steroid injection under fluoroscopic guidance. After obtaining written consent, the patient was taken back to fluoroscopy suite, placed in prone position with pillow under abdomen to decrease lumbar lordosis. Skin overlying lumbosacral area then prepped and draped in aseptic fashion. The L5-S1 vertebral interspace was identified by AP fluoroscopy. Skin and subcutaneous tissue overlying target site of injection anesthetized with 3 mL of 1% lidocaine. A 20-gauge 3-1/2 inch Tuohy needle advanced under fluoroscopic guidance towards the epidural space using paramedian approach. Epidural space identified using loss of resistance to air technique. After negative aspiration for heme or cerebrospinal fluid, 1 mL of Omnipaque injected. Lumbar epidurogram confirmed using both AP and lateral fluoroscopy. After negative aspiration for heme or cerebrospinal fluid, 5 mL of a solution containing 2 mL 40 mg per mL, 80 mg total triamcinolone and 3 mL lidocaine 1% injected slowly. Needle retracted mcc, flushed with 1 mL of 1% lidocaine and then removed. Sterile bandage placed over injection site. No new motor deficits present in the [address] [address] PAIN MANAGEMENT CONSULTATION Name: SAMSON ALANIZ Room #: [facility]#: [id number] Admission: 12/19/18 ������������������ Attend Phys: Coleman Parnell DO Discharge: ������������������ Date of : 44 Report #: [id number] extremities following procedure. The patient tolerated procedure well, carefully escorted to recovery room in stable condition. No apparent complications. After meeting discharge criteria, the patient discharged home. ��������������������������������������������� <ELECTRONICALLY SIGNED> ���������������������������������������� By: Coleman Parnell DO ��������������������������������������������� 12/20/18 0813 [id number] Coleman Parnell DO /nt
== END | disposition home or self-care (01) ==
LOC: PAIN 06:47
DX: M51.16 Intervertebral disc disorders with radiculopathy, lumbar region (principal); M48.061 Spinal stenosis, lumbar region without neurogenic claudication; G89.29 Other chronic pain; Z79.899 Other long term (current) drug therapy; M47.27 Other spondylosis with radiculopathy, lumbosacral region; M19.90 Unspecified osteoarthritis, unspecified site; Z88.8 Allergy status to other drugs, medicaments and biological substances; I10 Essential (primary) hypertension; Z79.891 Long term (current) use of opiate analgesic; Z87.891 Personal history of nicotine dependence

== ENCOUNTER → 2019-04-17 | Outpatient (CLI) | payer OTHER, MEDICARE ==
[~2019-04-17] VITALS: Ht 177.8 cm; Wt 82.8 kg
--- NOTE | ~2019-04-17 | HPC ---
[facility] [address] [place] [address] PAIN MANAGEMENT CONSULTATION Name: SAMSON ALANIZ [id number] Admission: 04/17/19 ������������������ Attend Phys: Coleman Parnell DO Discharge: ������������������ Date of : 44 Report #: [id number] THIS REPORT FOR: //name// CC: Coleman Tubbs MD DATE OF SERVICE: 04/17/2019 REFERRING PHYSICIAN: Osmani Tubbs MD CHIEF COMPLAINT: Neck pain, right upper extremity pain with paresthesias, low back pain, lower extremity pain with paresthesias. HISTORY OF PRESENT ILLNESS: As you know, the patient is a 79-year-old male who returns today in followup visit reporting 7-8/10 pain involving the neck and right upper extremity. The patient states he began experiencing neck pain, which then radiated to the shoulder. It was believed his shoulder may have been the source of symptoms. This unfortunately does not appear to be the case as his symptoms then began to radiate to the elbow and from the elbow towards the hand. There is a question about whether or not the patient might be suffering from carpal tunnel syndrome on this right side, though the distribution of symptoms would indicate more of a cervical radiculopathy. He has undergone imaging of the cervical spine, which did show changes consistent with a progression of multilevel cervical spondylosis which has progressed since previous evaluation in 2017. He returns today in followup visit to discuss options for treatment. He continues on his current Eliquis dose, which precludes him from undergoing injections today. ALLERGIES: NABUMETONE. CURRENT MEDICATIONS: Percocet 10/325 one tab every 5 hours p.r.n. for pain, baclofen 10 mg t.i.d. p.r.n., Eliquis 5 mg b.i.d., ascorbic acid 500 mg once a day, amlodipine 5 mg per day, lisinopril 20 mg per day, metformin 500 mg q.a.m., biotin 5 mg per day, temocillin 0.4 mg b.i.d., bupropion 150 mg once a day, zolpidem 10 mg p.o. at bedtime, vitamin D3 2000 units once a day. SOCIAL HISTORY: The patient denies tobacco, alcohol, IV or illicit drug use. He is retired, accompanied by his present in room today. IMAGING: MRI right shoulder shows abnormal signal within the right rotator cuff compatible with partial tear. There is moderate hypertrophic changes of the acromioclavicular joint. MRI cervical spine without contrast shows slight retrolisthesis of C5 on C6 and C6 on C7, mild anterolisthesis of C7 on T1. There is slight central canal [address] [address] PAIN MANAGEMENT CONSULTATION Name: SAMSON ALANIZ Zeus [id number] Admission: 04/17/19 ������������������ Attend Phys: Coleman Parnell DO Discharge: ������������������ Date of : 42 Report #: [id number] stenosis at L3-L4 with severe right and moderate left neural foraminal stenosis or central canal, right and paracentral disk osteophyte complex at the C4-C5 level with severe right and left foraminal stenosis at the C4-C5 level. MRI of the right elbow shows no appearance of the cubital tunnel syndrome posterior capitellar, localized subchondral bone irregularity, which is posttraumatic. PQRS: The patient has known arthritic changes of bilateral shoulders, lumbar spine. No rheumatoid arthritis. He is placing pain intensity is now 7-8/10. He is not a fall risk, has not had a fall in the last 3 months. He is on blood thinners in the form of Eliquis and has continued the medication today. He is treated for hypertension. He is on chronic opioids. He has a low opioid addiction potential. He is placing pain impact score 57/70, severe interference of daily activities secondary to pain. PHYSICAL EXAMINATION: VITAL SIGNS: Blood pressure 147/95, pulse 72, respiratory rate 18 and unlabored. The patient is 100% on room air. Height 5 feet 10 inches tall, weight 182.6 pounds, BMI calculated 26.2. GENERAL: Well-developed, well-nourished, well-hydrated 79-year-old male appearing stated age, pain is rated today 7-8/10. HEENT: Normocephalic, atraumatic. Pupils equal, round, reactive to light. EXTREMITIES: Show no clubbing, no cyanosis, and no edema. MUSCULOSKELETAL: Upper extremity strength appears equal and symmetrical, though there is some giveaway strength noted with biceps flexion, triceps extension on the right when compared to left. Provocating testing of the right shoulder is met with some increasing pain consistent with the rotator cuff injury noted on MRI. There does not appear to be radiation of symptoms in typical radicular fashion. Cervical provocation testing with extension, rotation and lateral flexion to the right intensify pain in a more radicular fashion radiating down the right arm. Spurling's test positive right, negative left. Muscle bulk and tone is equal and symmetrical in upper extremities. ASSESSMENT: 1. Cervical radiculopathy. 2. Displacement of cervical intervertebral disk with radiculopathy. 3. Cervical spondylosis with radiculopathy. 4. Chronic intractable pain. PLAN: 1. The patient returns today in followup visit with progressively worsening right neck pain, right shoulder, elbow and paresthesias radiating into the hand symptoms. He has been evaluated by Orthopedics who advised the patient he could be suffering from carpal tunnel syndrome, though this would not correlate with the distribution of symptoms the patient is experiencing. He has also been [facility] [address] [place] [address] PAIN MANAGEMENT CONSULTATION Name: KATTYSAMSON Zeus [facility] [id number] Admission: 04/17/19 ������������������ Attend Phys: Coleman Parnell DO Discharge: ������������������ Date of : 44 Report #: [id number] advised that there is possible he has some type of cubital tunnel issue, though this was ruled out on recent imaging. It does appear the patient is suffering from cervical radiculopathy, which does correlate to the findings of his recent MRI of the cervical spine and is not unusual in individuals that have similar findings in the lumbar region. We have discussed treatment options with the patient today for cervical radiculopathy. 2. We discussed physical therapy, stretching exercise, core strengthening and traction techniques. We discussed medication management adding neuropathic medications to his list of current medications, understanding the neuropathic medications do have side effects that can cause cognition issues even the increasing depression. We discussed undergoing the first in the series cervical epidural injections to address cervical radiculopathy. We also discussed surgical options with the patient today. After reviewing risks and benefits of all proposed treatment options, the patient chose to move forward with cervical epidural injection under fluoroscopic guidance. 3. The patient will have to discontinue his Eliquis for at least the next 3 days. We plan to have the patient to undergo the cervical epidural injection on Tuesday morning of this week, 04/20/2019 in hopes of improving pain. He has been advised of the risks and benefits of the procedure today, but we will review those again at the followup visit. He has made the appointment for 7:45 a.m. this Tuesday. He will discontinue his Eliquis today in preparation for that procedure. 4. We have advised the patient to escalate the dose of his baclofen from 10 mg to 20 mg dose, this will help with the current muscle spasming he is having and should improve overall pain. We did discuss the possibility of changing some of his neuropathic medications, but he wishes to determine if the injection will be beneficial before making adjustments in medications as he has had side effects to medications in the past. 5. We will see the patient back in followup visit, Tuesday04/20/2019 to undergo cervical epidural injection under fluoroscopic guidance having been off his Eliquis for 3 days. ��������������������������������������������� ���������������������������������������� By: ��������������������������������������������� 1708 0049 Coleman Parnell DO /nt
[2019-04-17 09:56] VITALS: BP 147/95
--- NOTE | 2019-04-17 10:22 | NUR ---
Pain Clinic Assessment: 1. History of Osteoarthritis: Not Applicable History of Rheumatoid Arthritis: Not Applicable 2. Height: 5 ft. 10 in. 177.8 cm. Weight: 182.6 lb. oz. 82.827 kg. Patient's BMI: 26.2 3. Vital Signs: BP: 147/95 Pulse: 72 Resp: 18 Temp: 02 Sat: 100 ECG Mon: 4. Pain Intensity: 7-8-AVG 5. Fall Risk: Dizziness: N Needs help standing or walking: N Fallen in the last 3 months: N Fall risk comments: 6. Patient on Blood Thinner: HANY 7. History of Hypertension: Y 8. Opioid Therapy greater than 6 weeks: Y Opiate Contract Signed: 07/13/16 9. Risk Assessment Tool Provided: LOW RISK 0/3 10. Functional Assessment Tool: 57/70 11. Recreational Drug Use: Never Drug Type: Tobacco Use: Former Smoker Tobacco Type: Amount or Packs/day: How Many Years: Alcohol Use: Yes Frequency: Quant:
== END ==
LOC: PAIN 06:55
DX: M47.22 Other spondylosis with radiculopathy, cervical region (principal); M50.20 Other cervical disc displacement, unspecified cervical region; G89.4 Chronic pain syndrome; Z88.8 Allergy status to other drugs, medicaments and biological substances; Z79.899 Other long term (current) drug therapy

== ENCOUNTER → 2019-04-20 | Outpatient (CLI) | payer OTHER, MEDICARE ==
[~2019-04-20] VITALS: Ht 177.8 cm; Wt 82.9 kg
[2019-04-20 07:33] VITALS: BP 160/107
--- NOTE | 2019-04-20 07:38 | NUR ---
Pain Clinic Assessment: 1. History of Osteoarthritis: Not Applicable History of Rheumatoid Arthritis: Not Applicable 2. Height: 5 ft. 10 in. 177.8 cm. Weight: 182.8 lb. oz. 82.918 kg. Patient's BMI: 26.2 3. Vital Signs: BP: 160/107 Pulse: 68 Resp: 18 Temp: 02 Sat: 99 ECG Mon: 4. Pain Intensity: 6 5. Fall Risk: Dizziness: N Needs help standing or walking: N Fallen in the last 3 months: N Fall risk comments: 6. Patient on Blood Thinner: ELIQUIS 7. History of Hypertension: Y 8. Opioid Therapy greater than 6 weeks: Y Opiate Contract Signed: 07/13/16 9. Risk Assessment Tool Provided: LOW RISK 0/3 10. Functional Assessment Tool: 57/ 11. Recreational Drug Use: Never Drug Type: Tobacco Use: Former Smoker Tobacco Type: Amount or Packs/day: How Many Years: Alcohol Use: Yes Frequency: Weekly Quant: 1
--- NOTE | 2019-04-24 15:47 | HPC ---
[facility] [address] [place] [address] PAIN MANAGEMENT CONSULTATION Name: SAMSON ALANIZ [facility] [id number] Admission: 04/20/19 Attend Phys: Coleman Parnell DO Discharge: Date of : 42 Report #: [id number] THIS REPORT FOR: //name// CC: Coleman Tubbs MD DATE OF SERVICE: 04/20/2019 CHIEF COMPLAINT: Neck pain, right upper extremity pain and paresthesias. HISTORY OF PRESENT ILLNESS: As you know, the patient is a very pleasant 79-year-old male returning in followup visit to undergo a cervical epidural injection under fluoroscopic guidance to address cervical radicular symptoms involving the neck and right upper extremity with radiation to the fourth and fifth digit on the right side. The patient indicates no injury, no trauma to the cervical region that may have led to symptom development. He has discontinued his Eliquis in preparation for today's procedure. He was advised of the risks and the benefits of this procedure at our last visit, returning today to undergo the cervical epidural injections to address cervical radicular symptoms that started spontaneously. Other than the discontinuation of the patient's Eliquis, there has been no change in medical history. ALLERGIES: NABUMETONE. CURRENT MEDICATIONS: Percocet, baclofen, Eliquis, ascorbic acid, amlodipine, lisinopril, metformin, biotin, bupropion, zolpidem, vitamin D. SOCIAL HISTORY: The patient denies tobacco, alcohol, IV or illicit drug use. He is retired. He is accompanied by his present in room today. IMAGING: No new imaging available. PQRS: The patient has known arthritic changes of bilateral shoulders, lumbar spine and cervical spine. No rheumatoid arthritis. He is placing pain intensity today at 6/10. He is not a fall risk, has not had a fall in last 3 months. He is on Eliquis, discontinued 3 days prior for today's procedure. He is treated for hypertension. He is on chronic opioids. He has a low opioid addiction potential. He is placing current pain score at 57/70 indicating severe interference of daily activities secondary to pain. PHYSICAL EXAMINATION: VITAL SIGNS: Blood pressure 160/107, pulse 68, respiratory rate 18 and unlabored. The patient is 99% on room air. Height 5 feet 10 inches tall, weight 182.8 pounds, BMI calculated 26.2. GENERAL: Well-developed, well-nourished, well-hydrated 79[place] [address] PAIN MANAGEMENT CONSULTATION Name: SAMSON ALANIZ Room #: REG [facility]#: [id number] Admission: 04/20/19 Attend Phys: Coleman Parnell DO Discharge: Date of : 42 Report #: [id number] appearing stated age, pain is rated today at 6/10. HEENT: Normocephalic, atraumatic. Pupils equal, round, reactive to light. EXTREMITIES: Show no clubbing, no cyanosis, and no edema. MUSCULOSKELETAL: Upper extremity strength symmetrical 5/5. Giveaway strength noted with biceps flexion, triceps flexion on the right when compared to left. Cervical provocation testing is met with increasing pain with lateral flexion to the right, rotation to the right. Spurling's test positive right. Muscle bulk and tone equal and symmetrical in upper extremities. ASSESSMENT: 1. Cervical radiculopathy. 2. Displacement of cervical intervertebral disk with radiculopathy. 3. Cervical spondylosis with radiculopathy. 4. Chronic intractable pain. PLAN: 1. The patient has returned today in followup visit having discontinued his Eliquis in preparation for today's procedure. The patient has been advised of the risks and the benefits of a cervical epidural injection. These risks include but are not necessarily limited to bleeding, bruising, infection, worsening pain, no relief of pain, also risk of temporary or permanent muscle weakness, temporary or permanent nerve damage, possible paralysis and . The patient states understood and wished to proceed. 2. No medication changes made at today's visit. The patient will continue current medical therapy as previously prescribed. 3. We will see the patient back in followup visit on an as needed basis for possible next in the series of cervical epidural injections. PROCEDURE NOTE DESCRIPTION OF PROCEDURE: C7-T1 cervical epidural steroid injection under fluoroscopic guidance. After obtaining written consent, the patient was taken back to fluoroscopy suite, placed in prone position with separate pillows under chest and forehead to decrease cervical lordosis. Skin overlying cervical area then prepped and draped in aseptic fashion. C7-T1 cervical interspace identified by AP fluoroscopy. Skin and subcutaneous tissue overlying target site of injection anesthetized with 3 mL of 1% lidocaine. A 20-gauge 3-1/2 inch Tuohy needle advanced under fluoroscopic guidance towards the epidural space using midline approach. Epidural space identified using loss of resistance to air technique. After negative aspiration for heme or cerebrospinal fluid, 1 mL of Omnipaque injected. A cervical epidurogram was confirmed using both AP and oblique fluoroscopy. After negative aspiration for heme or cerebrospinal fluid, 5 mL of a solution containing 2 mL 40 mg per mL, [address] [address] PAIN MANAGEMENT CONSULTATION Name: SAMSON ALANIZ Room #: REG [facility]#: [id number] Admission: 04/20/19 Attend Phys: Coleman Parnell DO Discharge: Date of : 44 Report #: [id number] mg total triamcinolone, 3 mL lidocaine 1% injected slowly. Needle then retracted approximately half way, flushed with 1 mL of 1% lidocaine, then removed. Sterile bandage placed over injection site. No new motor deficits present in the upper extremities following procedure. The patient tolerated procedure well, carefully escorted to recovery room in stable condition. No apparent complications. After meeting discharge criteria, the patient discharged home. <ELECTRONICALLY SIGNED> By: Coleman Parnell DO 04/24/19 1547 [id number] Coleman Parnell DO /nt
== END | disposition home or self-care (01) ==
LOC: PAIN 06:37
DX: M50.10 Cervical disc disorder with radiculopathy, unspecified cervical region (principal); M47.22 Other spondylosis with radiculopathy, cervical region; G89.29 Other chronic pain; M19.90 Unspecified osteoarthritis, unspecified site; Z79.891 Long term (current) use of opiate analgesic; Z79.899 Other long term (current) drug therapy; Z79.01 Long term (current) use of anticoagulants; Z88.8 Allergy status to other drugs, medicaments and biological substances; Z87.891 Personal history of nicotine dependence; Z98.890 Other specified postprocedural states

== ENCOUNTER → 2019-05-09 | Outpatient (CLI) | payer OTHER, MEDICARE ==
[~2019-05-09] VITALS: Ht 175.3 cm; Wt 81.6 kg
[2019-05-09 08:50] VITALS: BP 147/84
--- NOTE | 2019-05-09 08:59 | NUR ---
Pain Clinic Assessment: 1. History of Osteoarthritis: Not Applicable History of Rheumatoid Arthritis: Not Applicable 2. Height: 5 ft. 9 in. 175.3 cm. Weight: 180.0 lb. oz. 81.648 kg. Patient's BMI: 26.6 3. Vital Signs: BP: 147/84 Pulse: 75 Resp: 16 Temp: 02 Sat: 100 ECG Mon: 4. Pain Intensity: 7 5. Fall Risk: Dizziness: N Needs help standing or walking: N Fallen in the last 3 months: N Fall risk comments: 6. Patient on Blood Thinner: ELIQUIS 7. History of Hypertension: Y 8. Opioid Therapy greater than 6 weeks: Y Opiate Contract Signed: 07/13/16 9. Risk Assessment Tool Provided: LOW RISK 0 10. Functional Assessment Tool: 11. Recreational Drug Use: Never Drug Type: Tobacco Use: Former Smoker Tobacco Type: Amount or Packs/day: How Many Years: Alcohol Use: Yes Frequency: Quant:
--- NOTE | 2019-05-15 11:15 | HPC ---
[facility] [address] [place] [address] PAIN MANAGEMENT CONSULTATION Name: SAMSON ALANIZ [id number] Admission: 05/09/19 Attend Phys: Coleman Parnell DO Discharge: Date of : 42 Report #: [id number] THIS REPORT FOR: //name// CC: Coleman Tubbs MD DATE OF SERVICE: 05/09/2019 CHIEF COMPLAINT: Neck pain, right upper extremity pain with paresthesias, chronic low back pain, right lower extremity pain with paresthesias. HISTORY OF PRESENT ILLNESS: As you know, the patient is a 79-year-old male, returning in followup visit with concern of low back pain, right lower extremity pain with paresthesias, for which he places pain score at 7/10. He has discontinued his Eliquis in preparation for a lumbar epidural injection under fluoroscopic guidance to address lumbar radicular symptoms secondary to progressively worsening spinal stenosis. As you are aware, the patient continues to experience neck pain, right upper extremity pain due to the displacement of cervical intervertebral disk, leading to cervical radiculopathy. He underwent a cervical epidural injection, but again no significant pain improvement. He is looking into alternative treatments for that issue. He returns today to undergo a lumbar epidural injection under fluoroscopic guidance to address lumbar radicular symptoms secondary to progressively worsening spinal stenosis. He denies injury or trauma that may have led to symptom continuation. There have been no changes in medical history since our last visit. He has been off his Eliquis for 3 days in preparation for today's procedure. ALLERGIES: NABUMETONE. CURRENT MEDICATIONS: Percocet 10/325 one tab every 5 hours p.r.n. for pain, baclofen 10 mg t.i.d., Eliquis 5 mg b.i.d., ascorbic acid 500 mg once a day, amlodipine 5 mg per day, lisinopril 20 mg per day, metformin 500 mg in the morning, biotin 5 mg once a day, bupropion 150 mg per day, zolpidem 10 mg p.o. at bedtime, vitamin D3 2000 units once a day. SOCIAL HISTORY: The patient denies tobacco, alcohol, IV or illicit drug use. He is retired, retired years ago, accompanied by his present in room today. IMAGING: No new imaging available. PQRS: The patient has known arthritic changes of bilateral shoulders, cervical spine, lumbar spine. No rheumatoid arthritis. He is placing current pain score at 7/10. He is not at a fall risk, has not had a fall in the last 3 months. He is on blood thinners in the form of Eliquis, but has discontinued the medication 3 days prior to today's procedure. He is treated for hypertension. He has [address] [address] PAIN MANAGEMENT CONSULTATION Name: SAMSON ALANIZ Room #: REG [facility]#: [id number] Admission: 05/09/19 Attend Phys: Coleman Parnell DO Discharge: Date of : 42 Report #: [id number] chronic opioids and has a low opioid addiction potential. He is placing pain impact score 43 of 70 indicating moderate to severe interference of daily activities secondary to pain. PHYSICAL EXAMINATION: VITAL SIGNS: Blood pressure 147/84, pulse is 75, respiratory rate 16 and unlabored. The patient is 100% on room air. Height 5 feet 9 inches tall, weight 180 pounds, BMI calculated 26.6. GENERAL: Well-developed, well-nourished, well-hydrated 79-year-old male, appearing stated age. Pain is rated today at 7/10. HEENT: Normocephalic, atraumatic. Pupils equal, round, reactive to light. EXTREMITIES: Show no clubbing, no cyanosis, and no edema. MUSCULOSKELETAL: Lower extremity strength is symmetrical 5/5. Muscle bulk and tone equal and symmetrical. Seated straight leg raising positive. Supine straight leg raising positive. Tong's test negative. Gait is antalgic. Ankle clonus negative. Babinski is negative. ASSESSMENT: 1. Symptomatic lumbar radiculopathy. 2. Progressively worsening severe spinal stenosis of lumbar spine. 3. Displacement of lumbar intervertebral disk with radiculopathy. 4. Lumbosacral spondylosis with radiculopathy. 5. Lumbar degeneration. 6. Chronic intractable pain. PLAN: 1. The patient returns today in followup visit requesting to undergo a lumbar epidural injection under fluoroscopic guidance. He indicates pain level of 7/10. He continues to experience neck pain with paresthesias radiating down the right arm. He has not yet decided what he wants to do in regards to this issue. We had the patient undergo a cervical epidural injection, but this did not provide long-term benefit. I recommend he discuss with Neurosurgery possible decompression of the cervical region. He would also be advised to discuss his ongoing lumbar issues secondary to the severe spinal stenosis. He will consider this as an option. 2. The patient has been advised of the risks and benefits of a lumbar epidural injection. These risks include but are not necessarily limited to bleeding, bruising, infection, worsening pain, no relief of pain, also risk of temporary or permanent muscle weakness, temporary or permanent nerve damage, possible paralysis and . The patient states understood and wished to proceed. 3. The patient will escalate dose of gabapentin. He is currently taking 3 tablets at night. We will increase to 4 tablets at night for 3 nights and then begin escalating his gabapentin 1 tablet every 3 days to ultimately reach up to 1200 mg 3 times a day. The patient was advised during the titration to monitor for any side effects or improvement in symptoms. We are looking to improve symptoms without side effects of sleepiness, disorientation, confusion, mental [facility] [address] [place] [address] PAIN MANAGEMENT CONSULTATION Name: SAMSON ALANIZ Room [facility]: [facility] [id number] Admission: 05/09/19 Attend Phys: Coleman Parnell DO Discharge: Date of : 42 Report #: [id number] slowing. He will watch for the side effects as he has escalated dose. He was given a titration in written form to follow. If he runs low of medications, he can contact our clinic for future refills of his gabapentin. 4. We reviewed the fact that opiate medications are being used to provide analgesia adequate to support activities of daily living, not attempting to achieve a specific pain score on the 0-10 Visual Analog Scale. The current opiate medications are providing sufficient analgesia to allow the patient to participate in activities of daily living. The patient is not exhibiting any aberrant behavior suggestive of drug diversion. The patient is not having any adverse reactions to medications. The patient is not suffering from daytime somnolence or mental acuity changes. The patient is managing opiate-induced constipation with appropriate [id number] agents and dietary considerations. The patient was counseled on concern for caution with operating a motor vehicle while using opiate medications. A physical exam was performed and the patient's functional status was evaluated. All patients with back pain were advised against the bed rest greater than 4 days and were advised to return to normal activities. Pain score assessment was noted and the treatment plan was reviewed with the patient. All current medications, both prescribed and OTC were reviewed and reconciled on the electronic medical record. Tobacco screening was accomplished and smoking cessation was advised when indicated. BMI was noted and diet/exercise modification was recommended for all patients following outside normal parameters. I reviewed with the patient today their responsibilities to safeguard prescription medications, reviewed their responsibility to utilize medications only as prescribed by the physician. They are to seek and receive pain medications only from 1 physician group ( [facility]). They are to use 1 pharmacy and keep the clinic informed if they change pharmacies. Their responsibilities include making followup visits in a timely fashion and to avoid abrupt discontinuation of medication usage. Their responsibilities further include bringing their medications (bottles from the pharmacy with residual pills) to the visit for possible confirmation of pill counts and the patient understands it is their responsibility to submit to random drug screens to ensure both that the medications prescribed are present, and that no other controlled substances are present. All prescriptions provided today were generated electronically. 5. The patient was provided prescription of oxycodone 10/325 mg dose 1 tab p.o. q. 8 hours p.r.n. for pain. I have given the patient #90 tablets, releasing today, 4 weeks from today and 8 weeks from today, 3 months' worth the medication. The patient was advised to take the medication as directed. 6. We will see the patient back in followup visit in 3 months for medication management, earlier if he wishes to discuss interventional treatments further. [facility] [address] [place] [address] PAIN MANAGEMENT CONSULTATION Name: SAMSON ALANIZ Room #: REG [facility]#: [id number] Admission: 05/09/19 Attend Phys: Coleman Parnell DO Discharge: Date of : 42 Report #: [id number] PROCEDURE NOTE DESCRIPTION OF PROCEDURE: L5-S1 interlaminar epidural steroid injection under fluoroscopic guidance. After obtaining written consent, the patient was taken back to fluoroscopy suite, placed in prone position with pillow under abdomen to decrease lumbar lordosis. Skin overlying lumbosacral area then prepped and draped in aseptic fashion. The lumbar intervertebral spaces were identified by AP fluoroscopy. Skin and subcutaneous tissue overlying target site injection anesthetized with 3 mL of 1% lidocaine. A 20-gauge 3-1/2 inch Tuohy needle advanced under fluoroscopic guidance towards the epidural space using a right parasagittal approach. Epidural space identified using loss of resistance to air technique. After negative aspiration for heme or cerebrospinal fluid, 1 mL of Omnipaque injected. Lumbar epidurogram confirmed using both AP and lateral fluoroscopy. After negative aspiration for heme or cerebrospinal fluid, 5 mL of a solution containing 2 mL 40 mg per mL, 80 mg total triamcinolone and 3 mL of lidocaine 1% injected slowly. Needle then retracted senior care, flushed with 1 mL of 1% lidocaine and then removed. Sterile bandage placed over injection site. No new motor deficits present in lower extremity following procedure. The patient tolerated procedure well, carefully escorted to recovery room in stable condition. No apparent complication. After meeting discharge criteria, the patient discharged home. <ELECTRONICALLY SIGNED> By: Coleman Parnell DO 05/15/19 1115 1021 1531 Coleman Parnell DO /nt
== END | disposition home or self-care (01) ==
LOC: PAIN 08:38
DX: M51.16 Intervertebral disc disorders with radiculopathy, lumbar region (principal); M48.061 Spinal stenosis, lumbar region without neurogenic claudication; M47.27 Other spondylosis with radiculopathy, lumbosacral region; G89.29 Other chronic pain; I10 Essential (primary) hypertension; M19.90 Unspecified osteoarthritis, unspecified site; Z88.8 Allergy status to other drugs, medicaments and biological substances; Z79.01 Long term (current) use of anticoagulants; Z79.899 Other long term (current) drug therapy; Z79.891 Long term (current) use of opiate analgesic; Z87.891 Personal history of nicotine dependence

== ENCOUNTER → 2019-06-19 | Outpatient (CLI) | payer OTHER, MEDICARE ==
[~2019-06-19] VITALS: Ht 175.3 cm; Wt 83.9 kg
[~2019-06-19] MED LIST changes: +AMLODIPINE 5 MG PO; +PAMELOR25 MG PO
[2019-06-19 13:20] VITALS: BP 124/81
--- NOTE | 2019-06-19 13:45 | NUR ---
Pain Clinic Assessment: 1. History of Osteoarthritis: Not Applicable History of Rheumatoid Arthritis: Not Applicable 2. Height: 5 ft. 9 in. 175.3 cm. Weight: 185.0 lb. oz. 83.916 kg. Patient's BMI: 27.3 3. Vital Signs: BP: 124/81 Pulse: 74 Resp: 16 Temp: 02 Sat: 97 ECG Mon: 4. Pain Intensity: 8-10 AVG 5. Fall Risk: Dizziness: N Needs help standing or walking: N Fallen in the last 3 months: Y Fall risk comments: 6. Patient on Blood Thinner: HANY 7. History of Hypertension: Y 8. Opioid Therapy greater than 6 weeks: Y Opiate Contract Signed: 07/13/16 9. Risk Assessment Tool Provided: LOW RISK 0 10. Functional Assessment Tool: 11. Recreational Drug Use: Never Drug Type: Tobacco Use: Former Smoker Tobacco Type: Amount or Packs/day: How Many Years: Alcohol Use: Yes Frequency: Quant:
--- NOTE | 2019-06-26 08:01 | HPC ---
[facility] [place] [address] PAIN MANAGEMENT CONSULTATION Name: SAMSON ALANIZ [id number] Admission: 06/19/19 Attend Phys: Coleman Parnell DO Discharge: Date of : 42 Report #: [id number] THIS REPORT FOR: //name// CC: Coleman Tubbs DATE OF SERVICE: 06/19/2019 REFERRING PHYSICIAN: Osmani Tubbs MD CHIEF COMPLAINT: Low back pain, bilateral lower extremity pain with paresthesias, right greater than left. HISTORY OF PRESENT ILLNESS: As you know, the patient is a very pleasant 79-year-old male, who returns today in followup visit with concerns of low back pain, bilateral lower extremity pain, right greater than left. He is now placing the pain score at around 8-10/10. The patient states he is having difficulty with ambulation due to ongoing pain issues. He returns today in followup visit to discuss treatment options. Previous epidural injection provided improvement in symptoms, but unfortunately not much more than 50% improvement in overall pain and this lasted only for about 3 weeks. He returns today in followup visit to discuss the possibility of undergoing next in the series of epidural injections. As you are aware, the patient's MRIs have shown severe central canal stenosis, which is a progressive process. The most recent imaging was done years ago in 2012 with progressively worsening symptoms. The most marked position of his stenosis was at the L3-L4 level with a lesser degree L4-L5 and L5-S1. He returns today in followup visit to begin the process of scheduling the next in the series of epidural injections. He states he cannot undergo the epidural injection today as he remains on his anticoagulant and is planning some very major activities over the next couple of days, so he cannot rest and relax after the procedure. ALLERGIES: NABUMETONE. CURRENT MEDICATIONS: Percocet 10/325 mg dose 1 tab p.o. q 5 hours p.r.n. for pain, baclofen 10 mg t.i.d., Eliquis 5 mg b.i.d., ascorbic acid 500 mg once a day, amlodipine 5 mg per day, lisinopril 20 mg per day, metformin 500 mg once a day, biotin 5 mg once a day, bupropion 150 mg per day, zolpidem 10 mg p.o. at bedtime, vitamin D3 2000 units once a day. SOCIAL HISTORY: The patient denies tobacco, alcohol, or IV illicit drug use. He is retired years ago, accompanied by his , who is present in room today. IMAGING: No new imaging available. [address] [address] PAIN MANAGEMENT CONSULTATION Name: SAMSON ALANIZ Zeus [facility] [id number] Admission: 06/19/19 Attend Phys: Coleman Parnell DO Discharge: Date of : 42 Report #: [id number] PQRS: The patient has known osteoarthritic changes of the cervical spine, bilateral shoulders and lumbar spine. No rheumatoid arthritis. He is placing pain today at anywhere from 8-10/10. He is not a fall risk, but has had a fall in the last 3 months. Apparently, he tripped over some objects at home. This is not typical for the patient. He is on Eliquis for blood thinner. He is treated for hypertension. He is on chronic opioids and has a low opioid addiction potential. Pain impact score 43/70, moderate to severe, interference of daily activities secondary to pain. PHYSICAL EXAMINATION: VITAL SIGNS: Blood pressure 124/81, pulse 74, respiratory rate 16 and unlabored. The patient is 97% on room air. Height 5 feet 9 inches tall, weight 185 pounds, BMI calculated 27.3. GENERAL: Well-developed, well-nourished, well-hydrated 79-year-old male appearing stated age, pain is rated anywhere from 8-10/10. HEENT: Normocephalic, atraumatic. Pupils equal, round, reactive to light. Extraocular muscles are intact. EXTREMITIES: Show no clubbing, no cyanosis, and no edema. MUSCULOSKELETAL: Lower extremity strength appears symmetrical 5/5. Slight giveaway strength noted with hip flexion, knee extension on left when compared to right. Seated straight leg raising negative. Supine straight leg raising positive. Tong's test is negative. Modified Gaenslen's positive for axial low back pain. Gait is antalgic. Ankle clonus negative. Babinski is negative. Muscle bulk and tone symmetrical in comparing the left lower extremity to right. ASSESSMENT: 1. Symptomatic lumbar radiculopathy. 2. Severe spinal stenosis of lumbar spine. 3. Displacement of lumbar intervertebral disk with radiculopathy. 4. Lumbosacral spondylosis with radiculopathy. 5. Facet arthropathy of the lumbar spine. 6. Lumbar degeneration. 7. Chronic intractable pain. PLAN: 1. The patient returns today in followup visit to begin the process of scheduling next in the series of epidural injections under fluoroscopic guidance. Unfortunately, the epidural injections have begun to lose a long-term efficacy. The most recent epidural injection gave about 50% improvement in overall pain lasting for 5-6 weeks. Unfortunately, symptoms have begun to return. He denies new injury or trauma. I am concerned the patient's stenosis has become more a compressive force causing mechanical effects upon the central canal, than where we had seen the patient in the past with more inflammatory response amenable to epidural injections. We have agreed to provide the patient with the next in the series of epidural injections. He will need to be off his Eliquis for 3 days prior to that procedure. We have plans to have the patient [facility] [address] [place] [address] PAIN MANAGEMENT CONSULTATION Name: KATTYSAMSON L Room #: REG [facility]#: [id number] Admission: 06/19/19 Attend Phys: Coleman Parnell DO Discharge: Date of : 42 Report #: [id number] undergo the procedure next Tuesday, which is the 06/27/2019. This works best for the patient to be able to come off his Eliquis and be less busy as the [employer] holidays have just begun starting tomorrow and he will be busy over the next week. He will then be able to undergo the epidural injection on Tuesday and then relaxed for the days following. We have scheduled the patient for that appointment. He is to discontinue his Eliquis on Tuesday night. 2. We did discuss the possibility of making changes in medication management at this time. The patient does not wish to make any changes. He will continue current therapy with plans to make adjustments if his epidural injections do not provide long-term benefit. We also discussed possibly repeat imaging and surgical consultations. 3. We will see the patient in followup visit, Tuesday the 06/27/2019, to undergo next in the series of lumbar epidural injections. <ELECTRONICALLY SIGNED> By: Coleman Parnell DO 06/26/19 0801 1710 [id number] Coleman Parnell DO /nt
== END ==
LOC: PAIN 06:55
DX: M48.061 Spinal stenosis, lumbar region without neurogenic claudication (principal); M51.16 Intervertebral disc disorders with radiculopathy, lumbar region; M47.27 Other spondylosis with radiculopathy, lumbosacral region; M12.88 Other specific arthropathies, not elsewhere classified, other specified site; G89.4 Chronic pain syndrome; Z88.8 Allergy status to other drugs, medicaments and biological substances; Z79.899 Other long term (current) drug therapy

== ENCOUNTER → 2019-06-27 | Outpatient (CLI) | payer OTHER, MEDICARE ==
[~2019-06-27] VITALS: Ht 175.3 cm; Wt 83.6 kg
[2019-06-27 10:59] VITALS: BP 164/105
--- NOTE | 2019-06-27 11:10 | NUR ---
Pain Clinic Assessment: 1. History of Osteoarthritis: Not Applicable History of Rheumatoid Arthritis: Not Applicable 2. Height: 5 ft. 9 in. 175.3 cm. Weight: 184.2 lb. oz. 83.553 kg. Patient's BMI: 27.2 3. Vital Signs: BP: 164/105 Pulse: 70 Resp: 14 Temp: 02 Sat: 100 ECG Mon: 4. Pain Intensity: 3 5. Fall Risk: Dizziness: N Needs help standing or walking: N Fallen in the last 3 months: N Fall risk comments: 6. Patient on Blood Thinner: ELIQUIS 7. History of Hypertension: Y 8. Opioid Therapy greater than 6 weeks: Y Opiate Contract Signed: 07/13/16 9. Risk Assessment Tool Provided: LOW RISK 0 10. Functional Assessment Tool: 11. Recreational Drug Use: Never Drug Type: Tobacco Use: Former Smoker Tobacco Type: Amount or Packs/day: How Many Years: Alcohol Use: Yes Frequency: Quant:
--- NOTE | 2019-07-03 08:01 | HPC ---
[facility] [address] [place] [address] PAIN MANAGEMENT CONSULTATION Name: SAMSON ALANIZ Room #: REG [facility]#: [id number] Admission: 06/27/19 Attend Phys: Coleman Parnell DO Discharge: Date of : 44 Report #: [id number] THIS REPORT FOR: //name// CC: Coleman Tubbs MD DATE OF SERVICE: 06/27/2019 CHIEF COMPLAINT: Low back pain, bilateral lower extremity pain with paresthesias, right greater than left. HISTORY OF PRESENT ILLNESS: As you know, the patient is a very pleasant 79-year-old male returning in followup visit to undergo lumbar epidural injection under fluoroscopic guidance. He is placing his current pain score at 3/10. As you are aware, the patient suffers from progressively worsening spinal stenosis leading to his lumbar radicular pain. He has discontinued his Eliquis in preparation for today's procedure. He denies any new injury, trauma or any changes in medical history since our visit of last week. ALLERGIES: NABUMETONE. CURRENT MEDICATIONS: See chart. SOCIAL HISTORY: The patient denies tobacco, alcohol, IV or illicit drug use. He is accompanied by his present in room today. IMAGING: No new imaging available. PQRS: The patient has known arthritic changes of the cervical spine, bilateral shoulders, lumbar spine. No rheumatoid arthritis. He is placing pain score today 3/10. He is not a fall risk, has not had a fall in last 3 months. He is on chronic anticoagulation in the form of Eliquis. He is treated for hypertension. He is on chronic opioids and has a low addiction potential. Pain impact score rated today at a 43/70 moderate to severe interference. PHYSICAL EXAMINATION: VITAL SIGNS: Blood pressure 164/105, pulse is 70, respiratory rate 14 and unlabored. The patient is 100% on room air. Height 5 feet 9 inches tall, weight 184.2 pounds and BMI calculated 27.2. GENERAL: Well-developed, well-nourished, well-hydrated 79-year-old male, appearing stated age, pain is rated today at 3/10. HEENT: Normocephalic, atraumatic. EXTREMITIES: Show no clubbing, no cyanosis, no edema. MUSCULOSKELETAL: Lower extremity strength remains symmetrical 5/5. Slight giveaway strength noted again with hip flexion, knee extension on the left when [facility] [address] [place] [address] PAIN MANAGEMENT CONSULTATION Name: SAMSON ALANIZ Room #: REG [facility]#: [id number] Admission: 06/27/19 Attend Phys: Coleman Parnell DO Discharge: Date of : 42 Report #: [id number] compared to the right. Seated straight leg raising negative. Supine straight leg raising positive. ASSESSMENT: 1. Symptomatic lumbar radiculopathy. 2. Progressively worsening spinal stenosis of the lumbar spine. 3. Displacement of lumbar intervertebral disk with radiculopathy. 4. Lumbosacral spondylosis with radiculopathy. 5. Facet arthropathy of the lumbar spine. 6. Lumbar degeneration. 7. Chronic intractable pain. PLAN: 1. The patient returns today in followup visit to undergo lumbar epidural injection under fluoroscopic guidance. He has been advised risks and benefits of the procedure, states understood and wished to proceed. 2. No medication changes made at today's visit. The patient will continue current medical therapy as previously prescribed. 3. The patient will restart his Eliquis today and continue Eliquis as directed. We will see him back in followup visit for possible next in the series of epidural injections. PROCEDURE NOTE DESCRIPTION OF PROCEDURE: L5-S1 right parasagittal epidural steroid injection under fluoroscopic guidance. After obtaining written consent, the patient was taken back to fluoroscopy suite, placed in prone position with pillow under abdomen to decrease lumbar lordosis. Skin overlying lumbosacral area prepped and draped in aseptic fashion. The L5-S1 vertebral interspace identified by AP fluoroscopy. Skin and subcutaneous tissue overlying target site of injection anesthetized with 3 mL of 1% lidocaine. A 20-gauge 3-1/2 inch Tuohy needle advanced under fluoroscopic guidance towards the epidural space using a right parasagittal approach. Epidural space was identified using loss of resistance to air technique. After negative aspiration for heme or cerebrospinal fluid, 1 mL of Omnipaque injected. Lumbar epidurogram confirmed using both AP and lateral fluoroscopy. After negative aspiration for heme or cerebrospinal fluid, 5 mL of a solution containing 2 mL 40 mg per mL, 80 mg total triamcinolone along with 3 mL lidocaine 1% injected slowly. Needle retracted correction, flushed with 1 mL of 1% lidocaine and removed. Sterile bandage placed over injection site. No new motor deficits present in lower extremity following procedure. The patient tolerated procedure well, carefully escorted to recovery room in [facility] [address] [place] [address] PAIN MANAGEMENT CONSULTATION Name: SAMSON ALANIZ [id number] Admission: 06/27/19 Attend Phys: Coleman Parnell DO Discharge: Date of : 42 Report #: [id number] stable condition. No apparent complication. After meeting discharge criteria, the patient discharged home. <ELECTRONICALLY SIGNED> By: Coleman Parnell DO 07/03/19 0801 [id number] [id number] Coleman Parnell DO /nt
== END | disposition home or self-care (01) ==
LOC: PAIN 07:11
DX: M54.5 Low back pain (principal); M51.16 Intervertebral disc disorders with radiculopathy, lumbar region; M48.061 Spinal stenosis, lumbar region without neurogenic claudication; M47.27 Other spondylosis with radiculopathy, lumbosacral region; M47.26 Other spondylosis with radiculopathy, lumbar region; G89.29 Other chronic pain; I10 Essential (primary) hypertension; Z98.890 Other specified postprocedural states; Z79.891 Long term (current) use of opiate analgesic; Z79.01 Long term (current) use of anticoagulants; Z88.8 Allergy status to other drugs, medicaments and biological substances; Z79.899 Other long term (current) drug therapy

== ENCOUNTER → 2019-07-11 | Outpatient (CLI) | payer OTHER, MEDICARE ==
[~2019-07-11] VITALS: Ht 177.8 cm; Wt 84.8 kg
[2019-07-11 10:07] VITALS: BP 145/100
--- NOTE | 2019-07-11 10:11 | NUR ---
Pain Clinic Assessment: 1. History of Osteoarthritis: Not Applicable History of Rheumatoid Arthritis: Not Applicable 2. Height: 5 ft. 10 in. 177.8 cm. Weight: 187.0 lb. oz. 84.823 kg. Patient's BMI: 26.8 3. Vital Signs: BP: 145/100 Pulse: 73 Resp: 16 Temp: 02 Sat: 97 ECG Mon: 4. Pain Intensity: 8 when walking 5. Fall Risk: Dizziness: N Needs help standing or walking: N Fallen in the last 3 months: N Fall risk comments: 6. Patient on Blood Thinner: HANY 7. History of Hypertension: Y 8. Opioid Therapy greater than 6 weeks: Y Opiate Contract Signed: 07/13/16 9. Risk Assessment Tool Provided: LOW RISK 0 10. Functional Assessment Tool: 11. Recreational Drug Use: Never Drug Type: Tobacco Use: Former Smoker Tobacco Type: Amount or Packs/day: How Many Years: Alcohol Use: Yes Frequency: Quant:
--- NOTE | 2019-07-24 13:04 | HPC ---
[facility] [address] [place] [address] PAIN MANAGEMENT CONSULTATION Name: SAMSON ALANIZ [id number] Admission: 07/11/19 Attend Phys: Coleman Parnell DO Discharge: Date of : 42 Report #: [id number] THIS REPORT FOR: //name// CC: Coleman Tubbs MD DATE OF SERVICE: 07/11/2019 REFERRING PHYSICIAN: Dr. Osmani Tubbs. CHIEF COMPLAINT: Low back pain, bilateral lower extremity pain, right greater than left. HISTORY OF PRESENT ILLNESS: As you know, the patient is a very pleasant 79-year-old male who suffers from lumbar radiculopathy secondary to progressively worsening spinal stenosis, who has returned today with pain levels radiating up to 8/10 when ambulating. He describes his pain as mainly involving the right lower extremity with intermittent left lower extremity involvement. He indicates the pain is sharp, aching, burning, shooting, numbness, tingling and stabbing. He states walking and standing exacerbates symptoms; lying down, sitting and previous epidural injections have been beneficial for pain control. He returns today in followup visit, having noted that the last 2 epidural injections have not provided the benefit that other injections had in the past. We had advised the patient that if this were the case, this is a heralding sign of progressively worsening spinal stenosis and may need more aggressive treatment. He returns today to discuss this option. He denies injury or trauma that may have led to symptom reoccurrence. ALLERGIES: ADHESIVE TAPES AND NABUMETONE. CURRENT MEDICATIONS: Percocet 10/325 one tab every 8 hours p.r.n. for pain, baclofen 10 mg t.i.d. p.r.n. muscle spasms, Eliquis 5 mg twice a day, ascorbic acid 500 mg once a day, cholecalciferol 2000 units once a day, zolpidem 10 mg p.o. at bedtime, bupropion SR 150 mg once a day, tamsulosin 0.4 mg once a day, biotin 5 mg per day, metformin 500 mg once a day, lisinopril 20 mg per day, Norvasc 5 mg half-tab once a day. SOCIAL HISTORY: The patient denies tobacco, alcohol or IV illicit drug use. He is retired, retired years ago, accompanied by his present in room today. IMAGING: No new imaging available. PQRS: The patient has known osteoarthritic changes of the lumbar spine and cervical spine. No rheumatoid arthritis. He is placing his pain intensity today at 8/10. He is not a fall risk, has not had a fall in the last [address] [place] [address] PAIN MANAGEMENT CONSULTATION Name: SAMSON ALANIZ Zeus [id number] Admission: 07/11/19 Attend Phys: Coleman Parnell DO Discharge: Date of : 42 Report #: [id number] He is on blood thinner in the form of Eliquis. He is treated for hypertension. He is on chronic opioids, but does have a low opioid addiction potential. Pain impact score of 43/70, indicating [id number] interference in daily activities secondary to pain. PHYSICAL EXAMINATION: VITAL SIGNS: Blood pressure 145/100, pulse is 73, respiratory rate 16 and unlabored. The patient is 97% on room air. Height 5 feet 10 inches tall, weight 187 pounds, BMI calculated 26.8. GENERAL: Well-developed, well-nourished, well-hydrated 79-year-old male. Pain is rated today at 8/10. HEENT: Normocephalic, atraumatic. Pupils equal, round, reactive to light. Extraocular muscles are intact. Sclerae nonicteric without injection. NEUROLOGIC: Cranial nerves 2 through 12 grossly intact. Speech is fluent. The patient deemed a good historian. EXTREMITIES: Show no clubbing, no cyanosis, no edema. MUSCULOSKELETAL: Lower extremity strength appears symmetrical, though there is some giveaway strength noted with hip flexion and knee extension on the right when compared to the left, pain is generated with this maneuver. Seated straight leg raising, positive right. Supine straight leg raising, positive right. ESTELA's test is negative. Modified Gaenslen's positive for axial low back pain. Ankle clonus negative. Babinski is negative. Deep tendon reflexes appear slightly diminished on the right when compared to the left. Gait is antalgic, favoring right lower extremity over left. ASSESSMENT: 1. Symptomatic lumbar radiculopathy. 2. Severe and progressively worsening spinal stenosis of the lumbar spine. 3. Displacement of lumbar intervertebral disk with radiculopathy. 4. Lumbosacral spondylosis with radiculopathy. 5. Lumbar degeneration. 6. Chronic intractable pain. PLAN: 1. The patient has returned today in followup visit, where we have taken over 22 minutes of time to discuss the options for treatment now that epidural injections have become less effective. I have been concerned about progressively worsening spinal stenosis in this patient's case, and I believe we have reached a point where the inflammatory process that has been alleviated by the epidural injections is no longer the source of the patient's ongoing pain. I believe his symptoms are now mechanical; the fact that he received less benefit with the last 2 epidural injections would confirm this to be the case. The patient and I discussed at length today that treatment options ultimately will lead to a decompressive surgery, though the following was discussed with options that we can trial at this point. We discussed physical therapy, stretching exercises, core strengthening in [facility] [address] [place] [address] PAIN MANAGEMENT CONSULTATION Name: KATTYSAMSON Zeus Room #: REG [facility]#: [id number] Admission: 07/11/19 Attend Phys: Coleman Parnell DO Discharge: Date of : 42 Report #: [id number] of maintaining lower extremity strength. We discussed medication management, trying the next in the series of neuropathic pain medications to add to his Percocet, baclofen therapy. We discussed spinal cord stimulator therapy and ultimately surgical decompression, which I believe will be necessary in the very near future. After reviewing the risks and benefits of all proposed treatment options, the patient chose medication changes. 2. The patient will be started on nortriptyline 25 mg dose 1 tab p.o. at bedtime; he will take this for 7 days. If no improvement in symptoms; no side effects of sleepiness, disorientation, confusion or mental slowing, he is then to increase to 50 mg, continue for another 7 days; if no side effects and no improvement in symptoms, escalate to 75 mg dose. He was given #90 tablets with 2 refills. If he finds the medication beneficial, he can continue on the medication. Further escalation can be done up to 150 mg as necessary, watching for side effects during the titration. This will be the initial dosing. 3. The patient was provided a refill prescription of his Percocet 10/325 one tab p.o. q. 8 hours p.r.n. for pain. I have given the patient #90 tablets, releasing today, 4 weeks from today, 8 weeks from today; 3 months' worth of medication. 4. We reviewed the fact that opiate medications are being used to provide analgesia adequate to support activities of daily living, not attempting to achieve a specific pain score on the 0-10 Visual Analog Scale. The current opiate medications are providing sufficient analgesia to allow the patient to participate in activities of daily living. The patient is not exhibiting any aberrant behavior suggestive of drug diversion. The patient is not having any adverse reactions to medications. The patient is not suffering from daytime somnolence or mental acuity changes. The patient is managing opiate-induced constipation with appropriate iilt-biy-loajlme agents and dietary considerations. The patient was counseled on concern for caution with operating a motor vehicle while using opiate medications. A physical exam was performed and the patient's functional status was evaluated. All patients with back pain were advised against the bed rest greater than 4 days and were advised to return to normal activities. Pain score assessment was noted and the treatment plan was reviewed with the patient. All current medications, both prescribed and OTC were reviewed and reconciled on the electronic medical record. Tobacco screening was accomplished and smoking cessation was advised when indicated. BMI was noted and diet/exercise modification was recommended for all patients following outside normal parameters. I reviewed with the patient today their responsibilities to safeguard prescription medications, reviewed their responsibility to utilize medications only as prescribed by the physician. They are to seek and receive pain medications only from 1 physician group ( [facility]). They are to use 1 pharmacy and keep the clinic informed if they change pharmacies. Their responsibilities include making followup visits in a timely fashion and to avoid abrupt discontinuation of medication usage. Their responsibilities further include bringing their medications (bottles from the pharmacy with residual [facility] [address] [place] [address] PAIN MANAGEMENT CONSULTATION Name: SAMSON ALANIZ Room #: [facility]#: [id number] Admission: 07/11/19 Attend Phys: Coleman Parnell DO Discharge: Date of : 42 Report #: [id number] pills) to the visit for possible confirmation of pill counts and the patient understands it is their responsibility to submit to random drug screens to ensure both that the medications prescribed are present, and that no other controlled substances are present. All prescriptions provided today were generated electronically. 5. The patient was provided a prescription of baclofen 10 mg dose 1 tab p.o. t.i.d. p.r.n. muscle spasms, given the patient #90 tablets, 2 refills; 3 months' worth of medication. 6. We will see the patient back in followup visit on an as needed basis to discuss options for treatment. He has 3 months' worth of medications. We will see him back for those refills in 3 months. <ELECTRONICALLY SIGNED> By: Coleman Parnell DO 07/24/19 1304 1702 [id number] Coleman Parnell DO /nt
== END ==
LOC: PAIN 07:02
DX: M51.16 Intervertebral disc disorders with radiculopathy, lumbar region (principal); M48.061 Spinal stenosis, lumbar region without neurogenic claudication; M47.27 Other spondylosis with radiculopathy, lumbosacral region; G89.4 Chronic pain syndrome

== ENCOUNTER → 2019-11-28 | Outpatient (CLI) | payer OTHER, MEDICARE ==
[~2019-11-28] VITALS: Ht 177.8 cm; Wt 86.2 kg
[~2019-11-28] MED LIST changes: +MORPHINE SULFAT15 M3 PO; +NORVASC5 M1 PO
[2019-11-28 12:59] VITALS: BP 123/89
--- NOTE | 2019-11-28 13:13 | NUR ---
Pain Clinic Assessment: 1. History of Osteoarthritis: Not Applicable History of Rheumatoid Arthritis: Not Applicable 2. Height: 5 ft. 10 in. 177.8 cm. Weight: 190.0 lb. oz. 86.184 kg. Patient's BMI: 27.3 3. Vital Signs: BP: 123/89 Pulse: 76 Resp: 16 Temp: 02 Sat: 99 ECG Mon: 4. Pain Intensity: 0 5. Fall Risk: Dizziness: N Needs help standing or walking: N Fallen in the last 3 months: N Fall risk comments: 6. Patient on Blood Thinner: ELIQUIS 7. History of Hypertension: Y 8. Opioid Therapy greater than 6 weeks: Y Opiate Contract Signed: 07/13/16 9. Risk Assessment Tool Provided: LOW RISK 0 10. Functional Assessment Tool: 11. Recreational Drug Use: Never Drug Type: Tobacco Use: Former Smoker Tobacco Type: Amount or Packs/day: How Many Years: Alcohol Use: Yes Frequency: Quant:
--- NOTE | 2019-12-04 10:50 | HPC ---
[facility] [address] [place] [address] PAIN MANAGEMENT CONSULTATION Name: SAMSON ALANIZ [id number] Admission: 11/28/19 Attend Phys: Coleman Parnell DO Discharge: Date of : 44 Report #: [id number] THIS REPORT FOR: cc: Osmani Tubbs MD, Rene P. MD Johnson, James E. DO ~ DATE OF SERVICE: 11/28/2019 REFERRING PHYSICIAN: Osmani Tubbs MD CHIEF COMPLAINT: Low back pain, bilateral lower extremity pain with paresthesias. HISTORY OF PRESENT ILLNESS: As you know, the patient is a very pleasant 79-year-old male returning today in followup visit with recurrent lumbar radiculopathy secondary to progressively worsening neural foraminal stenosis and progressively worsening central canal stenosis. He is placing his pain score today at 0/10. He returns today, though to discuss his recurrent pain that was present while he was in [place]. Likely his symptoms have improved since he has returned to [facility]. He describes the pain as chronic. His pain is sharp, aching, burning, stabbing, numbness and tingling; exacerbated with walking, standing and doing any activity, improves with lying down and epidural injections and with the use of medications. He returns today in followup visit to discuss the possibility of making adjustments in medication management in hopes of improving pain. He also wishes to review recent MRI. He obtained while in [place] per the request of his orthopedic spine surgeon. ALLERGIES: ADHESIVE TAPES and NABUMETONE. CURRENT MEDICATIONS: Percocet 10/325 one tab every 8 hours p.r.n. for pain, baclofen 10 mg t.i.d. for muscle spasms, Eliquis 5 mg b.i.d., ascorbic acid 500 mg once a day, cholecalciferol 2000 units once a day, zolpidem 10 mg p.o. at bedtime, bupropion SR 150 mg per day, Tamsulosin 0.4 mg once a day, biotin 5 mg per day, metformin 500 mg once a day, lisinopril 20 mg once a day, Norvasc 5 mg 1/2 tab per day. SOCIAL HISTORY: The patient denies tobacco, alcohol, IV or illicit drug use. He is retired, retired years ago, unaccompanied today. IMAGING: MRI lumbar spine obtained on 08/24/2019 shows L1-2, unremarkable L2-3, mild central canal and moderate neural foraminal stenosis. There is abutment of the L2 nerve roots without significant impingement, L3-4 moderate central canal and neural foraminal narrowing. There is mild bilateral hypertrophic facet arthropathy. There is mild impingement upon the L3 nerve root. L4-5 [place] [address] PAIN MANAGEMENT CONSULTATION Name: SAMSON ALANIZ Room #: REG [facility]#: [id number] Admission: 11/28/19 Attend Phys: Coleman Parnell DO Discharge: Date of : 42 Report #: [id number] left laminectomy, mild central canal stenosis. Right shows mild to moderate foraminal stenosis, left marked neural foraminal stenosis. There is impingement upon the left L4 nerve root and right L4 nerve root, L5-S1 degenerative changes along with bilateral facet arthropathy. Both L5 nerve roots are impinged. PQRS: The patient has known arthritic changes of the lumbar spine. No rheumatoid arthritis. He is placing pain intensity 0/10, not a fall risk, has not had a fall in last 3 months, on Eliquis. He is treated for hypertension. He is on chronic opioids, has a low opioid addiction potential based on our assessment tool. Pain impact 43 of 70 indicating moderate to severe interference of daily activities secondary to pain. PHYSICAL EXAMINATION: VITAL SIGNS: Blood pressure 123/89, pulse is 76, respiratory rate 16 and unlabored, the patient is 99% on room air. Height 5 feet 10 inches tall, weight 190 pounds, BMI calculated 27.3. GENERAL: Well-developed, well-nourished, well-hydrated 79-year-old male appearing stated age, pain is rated today 0/10. HEENT: Normocephalic, atraumatic. Pupils equal, round, reactive to light. EXTREMITIES: Show no clubbing, no cyanosis, and no edema. MUSCULOSKELETAL: Lower extremity strength appears symmetrical again day 5/5. Slight giveaway strength noted with hip flexion, knee extension on the right when compared to left. Seated straight leg raising is positive bilaterally. Supine straight leg raising positive bilaterally. Tong's test is negative. ASSESSMENT: 1. Symptomatic lumbar radiculopathy. 2. Neural foraminal stenosis of the lumbar spine. 3. Central canal stenosis of the lumbar spine. 4. Displacement of lumbar intervertebral disk with radiculopathy. 5. Lumbosacral spondylosis with radiculopathy. 6. Lumbar degeneration. 7. Chronic intractable pain. PLAN: 1. The patient returns today in followup visit where we have reviewed his MRI in its entirety and described the findings therein. We did this not only with mottling, but also provided digital imaging, which represented the findings. Once we have completed the discussion of this MRI, which lasted for nearly 18 minutes of time, we then began to discuss treatment options available. The following was discussed with the patient today. We discussed physical therapy, stretching exercises and traction techniques to continue as he is currently undergoing. We discussed adjustments in medication management. He has requested to trial possible long-acting opioid medication for pain control. We also discussed the surgical necessity will ultimately be required to address his ongoing symptoms. Epidural injections remain a viable alternative though the [facility] [address] [place] [address] PAIN MANAGEMENT CONSULTATION Name: SAMSON ALANIZ [facility] [id number] Admission: 11/28/19 Attend Phys: Coleman Parnell DO Discharge: Date of : 42 Report #: [id number] patient has been seeing less efficacious response to each of these injections. A spinal cord stimulator could be helpful and potentially improve the patient's symptoms for a period of time, but ultimately decompression will be necessary. After reviewing risks and benefits of all proposed treatment options, the patient chose to make adjustments in medication management. 2. The patient will be started on MS Contin 15 mg dose 1 tab p.o. b.i.d. The patient will take this medication as directed. I have given him a 2-week trial of the medication #30 tablets initially to determine if this medication will be beneficial and whether or not he has side effects of sleepiness, disorientation, confusion, mental slowing or constipation then it cannot be improved with [id number] medications. The patient was given a prescription for 2 weeks trial. The patient was provided refill prescription of Percocet 10/325 one tab every 8 hours p.r.n. for pain. I have given the patient #90 tablets. I have advised the patient not to take this medication unless it is necessary. With the addition of the MS Contin, he should only rely on this medication if necessary. Prescription was provided in written form today. 3. The patient was provided refill prescription of baclofen 10 mg dose 1 tab p.o. t.i.d., given the patient #90 tablets, 2 refills, 3 months' worth of medication. 4. The patient was provided prescription of nortriptyline 25 mg dose 3 tabs p.o. at bedtime, #90 tablets with 2 refills. 5. We will see the patient back in followup visit in 3 months for medication management. He will contact our clinic in regards to morphine. If he is having difficulty with this medication, we will see him back in followup visit. If he is doing well with medication, we will provide him a prescription of the morphine to continue assuming no major side effects. <ELECTRONICALLY SIGNED> By: Coleman Parnell DO 12/04/19 1050 [id number] Coleman Parnell DO /nt
== END ==
LOC: PAIN 06:43
DX: M51.36 Other intervertebral disc degeneration, lumbar region (principal); M51.26 Other intervertebral disc displacement, lumbar region; M47.816 Spondylosis without myelopathy or radiculopathy, lumbar region; M48.061 Spinal stenosis, lumbar region without neurogenic claudication; G89.4 Chronic pain syndrome; Z79.899 Other long term (current) drug therapy

== ENCOUNTER → 2019-12-11 | Outpatient (CLI) | payer OTHER, MEDICARE ==
[~2019-12-11] VITALS: Ht 177.8 cm; Wt 88.2 kg
[~2019-12-11] MED LIST changes: +MOVANTIK25 MG PO
[2019-12-11 12:59] VITALS: BP 116/69
--- NOTE | 2019-12-11 13:41 | NUR ---
Pain Clinic Assessment: 1. History of Osteoarthritis: Not Applicable History of Rheumatoid Arthritis: Not Applicable 2. Height: 5 ft. 10 in. 177.8 cm. Weight: 194.4 lb. oz. 88.179 kg. Patient's BMI: 27.9 3. Vital Signs: BP: 116/69 Pulse: 70 Resp: 16 Temp: 02 Sat: 98 ECG Mon: 4. Pain Intensity: 0 5. Fall Risk: Dizziness: N Needs help standing or walking: N Fallen in the last 3 months: N Fall risk comments: 6. Patient on Blood Thinner: ELIQUIS 7. History of Hypertension: Y 8. Opioid Therapy greater than 6 weeks: Y Opiate Contract Signed: 07/13/16 9. Risk Assessment Tool Provided: LOW RISK 0 10. Functional Assessment Tool: 11. Recreational Drug Use: Never Drug Type: Tobacco Use: Former Smoker Tobacco Type: Amount or Packs/day: How Many Years: Alcohol Use: Yes Frequency: Quant:
--- NOTE | 2019-12-12 11:57 | HPC ---
[facility] [address] [place] [address] PAIN MANAGEMENT CONSULTATION Name: SAMSON ALANIZ Room #: REG [facility]#: [id number] Admission: 12/11/19 Attend Phys: Coleman Parnell DO Discharge: Date of : 42 Report #: [id number] THIS REPORT FOR: cc: Osmani Tubbs MD, Rene P. MD Johnson, James E. DO ~ DATE OF SERVICE: 12/11/2019 CHIEF COMPLAINT: Low back pain, bilateral lower extremity pain with paresthesias. HISTORY OF PRESENT ILLNESS: As you know, the patient is a very pleasant 79-year-old male returning in followup visit today stating that the changes in medication management were beneficial for pain control. He is now placing pain around 0/10. He has now started to take MS Contin 15 mg b.i.d. and noticing some minor side effects of dry mouth and increased constipation. He is also experiencing some sleepiness in the evening hours, which he is attributing to his medication. Overall, the patient indicates improved pain, which has been allowing him to go about his activities of daily living. He returns today in followup visit requesting refill on medications at current dosing with plans to continue for the next couple of months to determine if we can remain well controlled from a pain standpoint with this current therapy. Other than the side effects of the medication listed above, he is having no other issues. He states he is able to drive without complications. He is experiencing no mental slowing or acuity issues. ALLERGIES: ADHESIVE TAPE AND NABUMETONE. CURRENT MEDICATIONS: Percocet 10/325 one tab p.o. q. 8 hours p.r.n. for pain, baclofen 10 mg q. 8 hours p.r.n. muscle spasms, MS Contin 15 mg b.i.d., Eliquis 5 mg per day, ascorbic acid 500 mg per day, cholecalciferol 2000 units once a day, zolpidem 10 mg p.o. at bedtime, bupropion SR 150 mg per day, tamsulosin 0.4 mg once a day, biotin 5 mg per day, metformin 500 mg once a day, lisinopril 20 mg per day, Norvasc 5 mg one half tab per day. SOCIAL HISTORY: The patient denies tobacco, alcohol, IV or illicit drug use. He is retired, retired years ago, unaccompanied today. IMAGING: No new imaging available. PQRS: The patient has known arthritic changes of the lumbar spine. No rheumatoid arthritis. He is placing his current pain score today 0/10. He is not a fall risk, has not had a fall in last 3 months. He is on blood thinner in the form of Eliquis. He is treated for hypertension. He is on chronic opioids, has a low opiate addiction potential. Pain impact score is 43 of [address] [address] PAIN MANAGEMENT CONSULTATION Name: SAMSON ALANIZ Room #: REG [facility] Parth#: [id number] Admission: 12/11/19 Attend Phys: Coleman Parnell DO Discharge: Date of : 42 Report #: [id number] moderate to severe interference of daily activities secondary to pain. PHYSICAL EXAMINATION: VITAL SIGNS: Blood pressure 116/69, pulse 70, respiratory rate 16 and unlabored. The patient is 98% on room air. Height 5 feet 10 inches tall, weight 194.4 pounds, BMI calculated 27.9. GENERAL: Well-developed, well-nourished, well-hydrated, 79-year-old male. He appears his stated age. He is placing pain today at 0/10. HEENT: Normocephalic, atraumatic. Pupils equal, round, reactive to light. EXTREMITIES: Show no clubbing, no cyanosis, no edema. MUSCULOSKELETAL: Lower extremity strength equal and symmetrical 5/5, intact to light touch from L1 through S2 dermatomes. Seated straight leg raising negative. Supine straight leg raising is positive bilaterally. Tong's test is negative. Modified Gaenslen's positive for axial low back pain. Ankle clonus negative. Babinski is negative. ASSESSMENT: 1. Symptomatic lumbar radiculopathy. 2. Central canal stenosis of lumbar spine. 3. Neural foraminal stenosis of lumbar spine. 4. Displacement of lumbar intervertebral disk with radiculopathy. 5. Lumbosacral spondylosis with radiculopathy. 6. Lumbar degeneration. 7. Chronic intractable pain. PLAN: 1. The patient returns today in followup visit having indicated improvement in symptoms with the morphine. He states that it is controlling his baseline pain very well. He states he is relying on his oxycodone less frequently. He does report that if he walks greater than half a block, his pain intensifies quite quickly. This is fairly typical for neural foraminal stenotic patients and central canal stenosis patients. Without decompressive surgery to alleviate pressure on the nerve roots, this will continue to hinder the patient. From a medication standpoint, he is indicating benefit with the therapy. He is experiencing some side effects to the medication of increased sleepiness at night. He is having some dry mouth and constipation issues, but otherwise doing very well. He wishes to continue medication at current dosing. He does wish to address his constipation if at all possible. 2. We reviewed the fact that opiate medications are being used to provide analgesia adequate to support activities of daily living, not attempting to achieve a specific pain score on the 0-10 Visual Analog Scale. The current opiate medications are providing sufficient analgesia to allow the patient to participate in activities of daily living. The patient is not exhibiting any aberrant behavior suggestive of drug diversion. The patient is not having any adverse reactions to medications. The patient is not suffering from daytime somnolence or mental acuity changes. The patient is managing opiate-induced [address] [address] PAIN MANAGEMENT CONSULTATION Name: SAMSON ALANIZ Room #: REG [facility].#: [id number] Admission: 12/11/19 Attend Phys: Coleman Parnell DO Discharge: Date of : 42 Report #: [id number] constipation with appropriate rrqm-ghx-xkyyqdc agents and dietary considerations. The patient was counseled on concern for caution with operating a motor vehicle while using opiate medications. A physical exam was performed and the patient's functional status was evaluated. All patients with back pain were advised against the bed rest greater than 4 days and were advised to return to normal activities. Pain score assessment was noted and the treatment plan was reviewed with the patient. All current medications, both prescribed and OTC were reviewed and reconciled on the electronic medical record. Tobacco screening was accomplished and smoking cessation was advised when indicated. BMI was noted and diet/exercise modification was recommended for all patients following outside normal parameters. I reviewed with the patient today their responsibilities to safeguard prescription medications, reviewed their responsibility to utilize medications only as prescribed by the physician. They are to seek and receive pain medications only from 1 physician group ( [facility]). They are to use 1 pharmacy and keep the clinic informed if they change pharmacies. Their responsibilities include making followup visits in a timely fashion and to avoid abrupt discontinuation of medication usage. Their responsibilities further include bringing their medications (bottles from the pharmacy with residual pills) to the visit for possible confirmation of pill counts and the patient understands it is their responsibility to submit to random drug screens to ensure both that the medications prescribed are present, and that no other controlled substances are present. All prescriptions provided today were generated electronically. 3. The patient was provided prescription of MS Contin 15 mg dose 1 tab p.o. b.i.d. I have given the patient #60 tablets to release today and 4 weeks from today, 2 months' worth of medication. This equates to 30 mg morphine equivalents per day. 4. The patient was provided prescription of Percocet 10/325 one tab p.o. q. 8 hours p.r.n. for pain. I have given the patient #90 tablets, releasing today and 4 weeks from today, 2 months' worth of medication. This calculates out to 45 morphine equivalents a day in conjunction with his MS Contin equals 75 morphine equivalents a day, requiring the patient to be seen on once every 2-month basis as he is at a higher risk for opioid complications. 5. The patient was provided prescription of Movantik 25 mg dose 1 tab p.o. q.a.m. I have given the patient #30 tablets. The patient will utilize this for opioid-induced constipation secondary to his Percocet and morphine. We have trialled qmsy-gsw-dpaajro medications including MiraLax, lactulose and Colace without efficacy. Directly addressing his opioid-induced constipation is the most appropriate next step. We have given the patient a prescription of Movantik to take on a daily basis with 2 refills. 6. The patient was provided prescription of baclofen 10 mg dose 1 tab p.o. t.i.d. p.r.n. muscle spasms, given the patient #90 tablets, 2 refills. [facility] [address] [place] [address] PAIN MANAGEMENT CONSULTATION Name: SAMSON ALANIZ Room #: REG [facility]#: [id number] Admission: 12/11/19 Attend Phys: Coleman Parnell DO Discharge: Date of : 42 Report #: [id number] 7. We will see the patient back in followup visit in 2 months. At that time, discuss the efficacy of the MS Contin and Percocet combination and to determine if he is continuing to treat his potential side effects with conservative treatment and the Movantik. If all is doing well, we will provide refills at that visit. <ELECTRONICALLY SIGNED> By: Coleman Parnell DO 12/12/19 1157 [id number] Coleman Parnell DO /nt
== END ==
LOC: PAIN 06:46
DX: M51.16 Intervertebral disc disorders with radiculopathy, lumbar region (principal); M48.061 Spinal stenosis, lumbar region without neurogenic claudication; M47.27 Other spondylosis with radiculopathy, lumbosacral region; R20.2 Paresthesia of skin; M79.605 Pain in left leg; M79.604 Pain in right leg; Z91.048 Other nonmedicinal substance allergy status; Z88.8 Allergy status to other drugs, medicaments and biological substances; Z79.899 Other long term (current) drug therapy

== ENCOUNTER → 2020-01-30 | Outpatient (CLI) | payer OTHER, MEDICARE ==
[~2020-01-30] MED LIST changes: +LACTULOSE10 GM/152 PO
== END ==
LOC: RAD 16:15
DX: R60.9 Edema, unspecified (principal)

== ENCOUNTER → 2020-03-18 | Outpatient (CLI) | payer OTHER, MEDICARE ==
[~2020-03-18] VITALS: Ht 175.3 cm; Wt 81.9 kg
[~2020-03-18] MED LIST changes: +AMITIZA 24 MCG24 MC1 PO
[2020-03-18 09:43] VITALS: BP 144/90
--- NOTE | 2020-03-18 09:53 | NUR ---
Pain Clinic Assessment: 1. History of Osteoarthritis: Not Applicable History of Rheumatoid Arthritis: Not Applicable 2. Height: 5 ft. 9 in. 175.3 cm. Weight: 180.6 lb. oz. 81.920 kg. Patient's BMI: 26.7 3. Vital Signs: BP: 144/90 Pulse: 71 Resp: 14 Temp: 02 Sat: 100 ECG Mon: 4. Pain Intensity: 2 5. Fall Risk: Dizziness: N Needs help standing or walking: N Fallen in the last 3 months: N Fall risk comments: 6. Patient on Blood Thinner: ELIQUIS 7. History of Hypertension: Y 8. Opioid Therapy greater than 6 weeks: Y Opiate Contract Signed: 07/13/16 9. Risk Assessment Tool Provided: LOW RISK 0 10. Functional Assessment Tool: 11. Recreational Drug Use: Never Drug Type: Tobacco Use: Former Smoker Tobacco Type: Amount or Packs/day: How Many Years: Alcohol Use: Yes Frequency: Quant:
--- NOTE | 2020-03-19 07:23 | HPC ---
[facility] [address] [place] [address] PAIN MANAGEMENT CONSULTATION Name: SAMSON ALANIZ [id number] Admission: 03/18/20 Attend Phys: Minoo Gómez Discharge: Date of : 44 Report #: [id number] THIS REPORT FOR: cc: Osmani Tubbs MD, Rene P. MD Hocker, Amanda CNS ~ CC: ALFRED GALARZA DO DATE OF SERVICE: 03/18/2020 CHIEF COMPLAINT: Low back pain, bilateral lower extremity pain and paresthesias. HISTORY OF PRESENT ILLNESS: As you know, this is a very pleasant 80-year-old gentleman who returns to the pain clinic today for refill of his opioid medications. He finds that the MS Contin has been very beneficial in controlling his pain. He reports that pain score of 2/10 today. He states that he barely notices his pain. If it does appear, it is later in the day after he has been quite active. At that time, he may require an oxycodone tablet, but has been using those very sparingly since he has started his MS Contin. The only complaint that he is experiencing has been constipation. He has been taking lactulose, but states that his primary care doctor was worried about the sugar content of that and was wondering if there was any alternative that he may take. He does find the lactulose does work as well as occasional Senokot, but is wondering about options. The patient does report they are moving to [place] permanently. They have sold their house here and in the process of leaving next week. They may return here on an as needed basis. He and his already have a pain doctor in [place] established that they have been going to for quite some time. The patient has ongoing low back pain that radiates into his right leg and ankle. It is a burning, sharp pain that is worse with prolonged standing, again rating his pain score at 2/10. ALLERGIES: BAND-AIDS and NABUMETONE. CURRENT LIST OF MEDICATIONS: Lactulose, oxycodone 10/325 sparingly, MS Contin 15 mg b.i.d., baclofen p.r.n., amlodipine, Lasix, Eliquis, Zestril, metformin, Wellbutrin, Ambien, and vitamin D. PQRS: 1. 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 2. Height is 5 feet 10 inches, weight is 194, BMI is 27. Vital signs 116/69, pulse is 70, respirations 16, oxygen sat is 98, pain score is 2. [address] [address] PAIN MANAGEMENT CONSULTATION Name: SAMSON ALANIZ [facility]: [facility] [id number] Admission: 03/18/20 Attend Phys: Minoo Gómez Discharge: Date of : 44 Report #: [id number] 3. Fall risk. Denies dizziness, does not need help walking or standing, has not fallen in the last 3 months. He is on Eliquis as well as medicines for hypertension. His opioid therapy is greater than 6 weeks; therefore, an opioid signed contract is on the chart. Risk assessment tool is low. Functional assessment is 43/70. 4. Recreational drug use, he denies. He is a former smoker and occasionally drinks alcohol. According to the prescription monitoring system, he is due to fill his medications. His last fill in the [facility] was in December. He did fill in [place] since his last visit here. PHYSICAL EXAMINATION: GENERAL: This is a well-developed, well-nourished, well-hydrated 80-year-old gentleman who appears his stated age, placing his current pain score at 2/10 today. HEENT: Normocephalic, atraumatic. Pupils equal, round and reactive to light. He is wearing a mask. EXTREMITIES: No clubbing, no cyanosis, no edema. MUSCULOSKELETAL: Seated straight leg raising is negative. He has pain in his lumbosacral region that does radiate down his right leg. His lower extremities strength is equal and symmetrical at 5/5 and intact to light touch from L1-S2. Modified Gaenslen is positive for axial low back pain. ASSESSMENT: 1. Symptomatic lumbar radiculopathy. 2. Central canal stenosis of lumbar spine. 3. Neural foraminal stenosis of lumbar spine. 4. Displacement of lumbar intervertebral disk with radiculopathy. 5. Lumbosacral spondylosis sclerosis with radiculopathy. 6. Lumbar degeneration. 7. Complex medical management under terms of written opioid agreement. PLAN: 1. We discussed treatment options with the patient today. The patient finds the opioid rotation to MS Contin very beneficial in controlling his pain. He feels that he is very evenly controlled and has rarely taken an oxycodone, despite his increase activity with getting ready for a move. He also reports he has been able to wean off his nortriptyline. Today, he is requesting refills for one month of his MS Contin [address] Alfred Galarza will send this electronically to his pharmacy. 2. The patient will fill his next medications in [place] with the pain doctor that he has established there since they are moving and hopefully will not return except on an needed basis to the [facility]. 3. We did discuss his opioid-induced constipation. He continues to have issues, though taking lactulose. His primary care doctor is worried about the [facility] [address] [place] [address] PAIN MANAGEMENT CONSULTATION Name: SAMSON ALANIZ Room #: REG [facility] Parth#: [id number] Admission: 03/18/20 Attend Phys: Minoo Gómez Discharge: Date of : 44 Report #: [id number] sugar content. We will try Amitiza 24 mcg 1 p.o. b.i.d. According to his insurance list, this is an approved medication. If patient does find the capsules beneficial, he can continue those or he may resume his lactulose, though the liquid is high in sugar, his blood sugars have been running around 100 per his report. It is cumbersome though to travel with the liquid medication and at times not effective. 4. We wish the patient the best of luck in [place] and will call us on an as needed basis. Dr Alfred Galarza did see the patient as well today and collaborated care. <ELECTRONICALLY SIGNED> By: Minoo Gómez 03/19/20 0723 1132 [id number] Minoo Gómez /nt
== END ==
LOC: PAIN 06:48
PROVIDERS: ATTEND Clinical Nurse Specialist Adult Health
DX: M47.27 Other spondylosis with radiculopathy, lumbosacral region (principal); M79.604 Pain in right leg; M79.605 Pain in left leg; M48.02 Spinal stenosis, cervical region; M51.16 Intervertebral disc disorders with radiculopathy, lumbar region; F11.20 Opioid dependence, uncomplicated; Z88.8 Allergy status to other drugs, medicaments and biological substances; Z79.899 Other long term (current) drug therapy